=== PATIENT | female | born 1950 | race Caucasian/White ===

== ENCOUNTER → 2018-06-28 10:23 | Outpatient (CLI) | payer MEDICARE, BC, SELFPAY ==
--- NOTE | 2018-06-28 09:00 | DIABASSESS_ITS ---
DESCRIPTION/ASSESSMENT: Sherice presents for support for weight loss with diabetes. She has lost ~56 pounds, however she has regained 4 pounds and expresses disappointment and fear of regaining. Sherice is documenting her food with noted increase in candy at noon and carbohydrate for supper, SHe has been unsuccessful finding a shake substitute that is not high in carbohydrate. She has also stopped eating most vegetables. Sherice has increased her basal insulin to 60 units without effect, and has added 10 units Novolog to cover her food. She continues to only monitor before breakfast. Over the pat 10 days blood sugar range 110-249 this AM. Sherice continues to walk daily 1.5-2 miles and occasionally another .5 miles in the evening. INTERVENTION: Discussed alternatives to high carbohydrate foods that are highly processed and she voices understanding. She has determined an amount of chocolate that limits her carbohydrate intake and agrees to restrict herself to this intake daily. She will continue to look at carbohydrates in food. Discussed apps for tracking food. Supportive listening regarding stressors. ACTION PLAN: As above, Sherice will continue to document her food; limit sugar calories from chocolate; increase vegetables to at least 1 serving dialy. She will continue to walk daily.
== END ==
PROVIDERS: PCP Family Medicine; Visit Provider Dietitian, Registered
DX: E11.9 Type 2 diabetes mellitus without complications (principal); Z71.3 Dietary counseling and surveillance
CPT/HCPCS: 97802

== ENCOUNTER 2018-07-26 09:04 | Outpatient (CLI) | payer SELFPAY ==
--- NOTE | 2018-07-26 09:00 | DIABASSESS_ITS ---
DESCRIPTION/ASSESSMENT: Sherice presents for diabetes management follow-up having documented her food, blood sugars and insulin dosing for the past few weeks. Sherice eats 3 meals a day, now egg and toast or just toast for breakfast, her main meal is often mid-day with a mosaicist meal at night. She is eating sweets at least once a day; often twice a day. She is including foods like pizza some days. She has just sweets for a meal a few times a week. She takes 55 units Lantus, 10units Novolog at breakfast and 8 at supper. She monitors every morning with a high of 282, mostly mid 100s, except today 102mg/ dl. Sherice continues to walk with high intensity over a mile a day which she enjoys. Sherice continues to be plagued with financial worries and loneliness. Weight today: 198.5 INTERVENTION/PLAN: DSME is provided in the following AADE 7 areas based on patients interest and assessment of needs: Sherice continues to focus on stressors. She will attempt to use the STOP sign to stop negative thoughts; flip to positive. Discussed lack of community involvement and she will ask people at [employer] if there is anyone who likes to play cards; or go to the library. Discussed food choices and frequency of sweets. Sherice will limit sweets to one per day and eat it prior to evening. She will have 1 vegetable daily. She will look up diabetic smoothie recipe using fruit and vegetable for breakfast or supper.
== END 2018-07-26 09:24 ==
PROVIDERS: PCP Family Medicine; Visit Provider Dietitian, Registered
DX: E11.9 Type 2 diabetes mellitus without complications (principal); Z79.4 Long term (current) use of insulin; Z71.3 Dietary counseling and surveillance
CPT/HCPCS: G0108

== ENCOUNTER 2018-08-30 09:01 | Outpatient (CLI) | payer SELFPAY ==
--- NOTE | 2018-08-30 09:00 | DIABASSESS_ITS ---
DESCRIPTION/ASSESSMENT: Sherice Carey presents for follow-up to diabetes and weight management. Weight today: 201 Sherice is documenting her food, insulin dose and blood sugars. Blood sugars are increased fasting in 200s over past week.She has increased her insulin dosing in the morning to 10-18units and basal insulin to 60units. Food record indicates refined grain most mornings; noodles with protein for lunch with occasional salad, chocolate bar or other sweet daily; she skips supper and has a sweet, popcorn or crackers. She walks 1 mile most days and does look forward to that. She has discontinued [id number] because of UTI frequency. Family stressors continue. She states she has no social outlets at this time. INTERVENTION: Discussed possible reasons for increased blood sugars including medication change. Discussed food choices. Brainstormed some alternatives to refined grains including yogurt, shake with fruit. Discussed protein every time she has carbohydrate. Discussed limiting sugar sources in a day. Discussed stressors. ACTION PLAN: Test blood sugar before every meal and bedtime for 3 days; call in results Sign up for [facility] [employer] to get connected to community Ask for gym membership for ina billed 3 MNT. [phone]
== END 2018-08-30 09:21 ==
PROVIDERS: PCP Family Medicine; Visit Provider Dietitian, Registered
DX: E11.9 Type 2 diabetes mellitus without complications (principal); Z79.4 Long term (current) use of insulin; Z71.3 Dietary counseling and surveillance
CPT/HCPCS: 97802

== ENCOUNTER 2018-10-03 00:40 | Outpatient (CLI) | payer MEDICARE, BC, SELFPAY ==
--- NOTE | 2018-10-03 10:19 | DI.MAMMO_ITS ---
SYMPTOM/DIAGNOSIS: SCREENING Z112.31, PREVENTATIVE CARE Z00.00 BILATERAL SCREENING MAMMOGRAM: Mammograms were interpreted according to the usual protocol including computer analysis with CAD system, tomosynthesis and C view imaging. Comparison is made with exams from 2014 through 2017. The breasts area composed of scattered fibroglandular densities. No suspicious masses or suspicious microcalcifications are seen. There has been no significant change. IMPRESSION: Category 1-B, negative mammogram. Yearly screening mammography is recommended. [facility] ASSESSMENT OF FINDINGS: Negative. Category 1. Patient will receive a letter notifying them of these results. BI-RADS category B. There are scattered areas of fibroglandular density.
== END 2018-10-03 01:00 ==
PROVIDERS: PCP Family Medicine; Visit Provider Family Medicine
DX: Z00.00 Encounter for general adult medical examination without abnormal findings (principal); Z12.31 Encounter for screening mammogram for malignant neoplasm of breast
CPT/HCPCS: 77063; 77067

== ENCOUNTER 2018-10-04 02:06 | Outpatient (CLI) | payer MEDICARE, BC, SELFPAY ==
--- NOTE | 2018-10-04 09:00 | DIABASSESS_ITS ---
DESCRIPTION/ASSESSMENT: Sherice presents for ongoing Medical Nutrition Therapy for diabetes and obesity. Weight today: 203.8 Blood sugars fasting 189-283. She took her blood sugars before supper at 243- 368mg/dl. Sherice is eating egg with toast, or bagel or pumpkin bread most recently. She has her larger meal at noon some days but not consistently. She is more frequently eating 2 sweets a day than reported in the past; she continues to eat cereal and sugared grains for breakfast. Sherice attempted Metformin again to replace the SGLT2 inhibitor she stopped secondary to urinary tract infections. She reports unacceptable side effects and stopped the medication. Sherice reports stressors. She does continue to walk most days but she does wonder why as she is not seeing the glycemic benefit. She continues to identify social connection as a hole in her life in addition to ongoing financial stress and now holiday stress. INTERVENTION: Reviewed medication options. Discussed food choices. Discussed reconsideration of bariatric surgery if she meets the criteria. Discussed physical activity and the possibility of joining a gym class for physical activity as well as social connection. Supportive listening. ACTION PLAN: Talk with MD regarding medication Google recipes for protein shake monitor and limit sweets in a day Individual DSME/T ____ units billed TIME IN: OUT: No DM group education series being offered at this time.
== END 2018-10-04 02:26 ==
PROVIDERS: PCP Family Medicine; Visit Provider Dietitian, Registered
DX: E11.9 Type 2 diabetes mellitus without complications (principal); Z79.4 Long term (current) use of insulin; E66.8 Other obesity; Z71.3 Dietary counseling and surveillance
CPT/HCPCS: 97802

== ENCOUNTER 2018-11-15 13:41 | Outpatient (CLI) | payer MEDICARE, BC, SELFPAY ==
--- NOTE | 2018-11-14 09:00 | DIABASSESS_ITS ---
DESCRIPTION/ASSESSMENT: Sherice Carey presents for diabetes management follow up encouraged because she has lost weight gained over the holidays and since stopping her SGLT2 inhibitor. She restarted her SGLT2 inhibitor despite her endocrinology Nurse Practitioner suggesting she stop it secondary to 2 genital yeast infections. Weight today 204, similar to last weight of 203.8. Sherice describes ongoing financial stress and isolation. She did not get a gym membership for [employer] as we had discussed. She is having difficulty deciding what to do for social support. She identifies the need to eat more salads to help her nutrition. Food choices for breakfast have been oatmeal and eggs/toast. She often has popcorn and mini chocolate bar for lunch; meat, starch, vegetables for supper. She only monitors fasting and thus, we do not see the impact of food choices on blood sugar. Sherice has increased her mealtime insulin dose to 15-20 at breakfast and 20 at supper. She has also increased her Lantus dose to 60-65mg/dl. She continues to walk at least one mile daily. INTERVENTION: Discussed alternative food choices including smoothie alternatives which gets her some fruit and less grain. Reviewed all classes of diabetes medicines and she has no options left she is willing to take or that would be recommended for her at this time. She wishes to continue with SGLT2 inhibitor and will request this with her provider at their next visit. Previously we reviewed insulin injection and considered her injections sites. She was able to demonstrate appropriate technique without difficulty. Supportive listening and review of social contacts she could make. ACTION: Sherice will discuss continuing SGLT2 inhibitor with her PCP. have a salad at lunch and/or dinner most days discuss with current supports and search out social options
== END 2018-11-15 14:01 ==
PROVIDERS: PCP Family Medicine; Visit Provider Dietitian, Registered
DX: E11.9 Type 2 diabetes mellitus without complications (principal); Z79.4 Long term (current) use of insulin; Z73.1 Type A behavior pattern
CPT/HCPCS: G0108

== ENCOUNTER → 2018-12-13 09:33 | Outpatient (BNVA) | payer MEDICARE, BC, SELFPAY | PROVIDERS: PCP Family Medicine; Visit Provider Urology | DX: N39.41 Urge incontinence (principal) | CPT/HCPCS: 99213 ==

== ENCOUNTER 2018-12-20 02:00 | Outpatient (CLI) | payer MEDICARE, BC, SELFPAY ==
--- NOTE | 2018-12-20 09:02 | DIABASSESS_ITS ---
DESCRIPTION/ASSESSMENT: Sherice Carey presents for ongoing diabetes self management follow up visit. Weight today: 201 Blood sugars fasting have decreased [id number] to 119-155s. She has restarted Invokana, decreased her Lantus to 55units from 60units, and decreased mealtime insulin at breakfast and supper from 15u to 10u. Sherice asks how insulin works. Sherice reports that has stopped buying potatoes and has started fixing a salad for herself although her food record does not identify salads. Sherice describes current stressors; unable to walk due to cold, significant financial worries, and worries about her children. INTERVENTION: Reviewed action and purpose of insulin in the body; its potential effects on weight. Supportive listening re: stressors. Explored positives in her life and gratitudes she has. ACTION PLAN: She will continue to increase her vegetable intake resume walking visualize happy; identify what have control over for stressors She wishes to return in 1 month. Individual DSME/T _2___ units billed TIME IN: 0900 OUT: 1005 No DM group education series being offered at this time.
== END 2018-12-20 02:20 ==
PROVIDERS: PCP Family Medicine; Visit Provider Dietitian, Registered
DX: E11.9 Type 2 diabetes mellitus without complications (principal); Z79.4 Long term (current) use of insulin; Z71.3 Dietary counseling and surveillance
CPT/HCPCS: G0108

== ENCOUNTER 2018-12-29 07:15 | Day surgery (SDC) | payer MEDICARE, BC, SELFPAY ==
[2018-12-29 07:34] VITALS: BP 113/66; PULSE 57; RESP 16; TEMP 35.8; O2SAT 96
[2018-12-29] MEDS: Ciprofloxacin 250 MG TAB PO (07:46)
[2018-12-29] MEDS: Lactated Ringers 1,000 ML 80 ML IV (07:48)
[2018-12-29] MEDS: Lidocaine 2% Jelly 6 ML SYR (08:59)
[2018-12-29] MEDS: Water,Injection,Bacteriostatic 30 ML VIAL IJ (09:03)
--- NOTE | 2018-12-29 09:09 | W.PM.DSUDISC ---
Discharge Plan Disposition Patient Disposition: HOME Condition: Stable Discharge Details Reason For Visit: overactive bladder Attending Provider: Nahum Colon Primary Care Provider: Cintia Vázquez Home Meds and New Rx's Prescriptions: No Action esomeprazole magnesium [Nexium] 40 MG capsule,delayed release(DR/EC) 40 mg PO HS RF: 0 losartan [Cozaar] 25 MG tablet 50 mg PO DAILY RF: 0 hydrochlorothiazide 25 MG tablet 25 mg PO DAILY RF: 0 Novolog PenFill U-100 Insulin 100 UNIT/1 ML cartridge 8 - 10 unit Sub-Q DIRECTED RF: 0 Victoza 2-Lee 0.6 MG/0.1 ML pen injector 1.8 mg SQ DAILY RF: 0 Farxiga 5 MG tablet 5 mg PO DAILY RF: 0 aspirin [Aspirin Low-Strength] 81 MG tablet,chewable 81 mg PO DAILY RF: 0 rosuvastatin [Crestor] 20 MG tablet 20 mg PO DAILY RF: 0 VITAMIN D3 1,000 UNIT capsule 1,000 unit PO DAILY RF: 0 Lantus U-100 Insulin 100 unit/mL Solution 50 unit SUBCUT HS RF: 0 Discharge Instructions Additional Instructions: pt must void prior to discharge OK to restart aspirin and NSAIDS No f/u appt to be scheduled, but ask pt to call next week with a progress report Activity:: Activity as Tolerated Diet:: As Tolerated Discharge Orders Discharge Orders: Discharge Order (Routine); Ordered 12/29/18 Ordered By: Nahum Colon
[2018-12-29 10:35] VITALS: BP 108/65; PULSE 49; RESP 16; TEMP 36; O2SAT 98
--- NOTE | 2018-12-29 11:13 | ROE_ITS ---
REPORT OF OPERATIVE PROCEDURE DATE OF PROCEDURE December 29, 2018 PREOPERATIVE DIAGNOSIS Overactive bladder. POSTOPERATIVE DIAGNOSIS Overactive bladder. 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 SURGEON Nahum Colon M.D. ANESTHESIA MAC. COMPLICATIONS None. ESTIMATED BLOOD LOSS Minimal. HISTORY This is a 68-year-old woman who has a history of urinary frequency and urgency related to overactive bladder. She has received and injection of Botox into the detrusor muscle previously. Her symptoms im proved dramatically, but as expected, the effect of the Botox has worn off over the months. She prese nts now for repeat injection. PROCEDURE The patient was brought to the Operating Room on 12/29/2018. She was given Monitored Anesthesia Care a nd placed in the dorsal lithotomy position. Her genitalia was prepped and draped. A #20-Tunisian Urethrotome sheath was passed through the urethra into the bladder. The bladder was then inspected with the 30-Degree lens. We used the transurethral injection system to inject a total of 100 units of Botox into the detrusor muscle. We used a solution of 100 units of Botox and 20 ml of saline; we injected 1 ml in 20 differen t locations. We used a grid pattern of 4 horizontal rows and 5 vertical rows. We avoided the trigone and bladder neck during our injections. She tolerated this procedure well with no complications.
== END 2018-12-29 10:30 | disposition home or self-care (01) ==
PROVIDERS: PCP Family Medicine; Visit Provider Urology
PROC: (CPT 52287; principal; 2018-12-29 08:45)
DX: N32.81 Overactive bladder (principal)
CPT/HCPCS: 52287; J0585

== ENCOUNTER 2019-01-17 01:49 | Outpatient (CLI) | payer MEDICARE, BC, SELFPAY ==
--- NOTE | 2019-01-18 09:40 | W.DIABETESNO ---
Date of service: 01/18/19 Time of Service: 09:40 Diabetes Note NOTE: DESCRIPTION/ASSESSMENT: Sherice presents for monthly follow up for diabetes self management including weight management. Weight today 199 having resumed Farxiga. Documented blood sugars over the past month 124-221. She does not test blood sugars otherwise. She is taking 50units Glargine and 10u Novolog breakfast and supper. She is back on her breakfast shake which includes fruit and dairy. She eats a variety at meals. Sweets at lunch some days. Sherice describes high stress with out of down family visiting and her 's surgery as well as financial stress. She has been using a prayer mantra to help with most stressful times. She has not been walking this month due to company and the weather. INTERVENTION: Supportive listening re: stressors. Discussed flipping negative to positive and focus on what is good in a situation. She agrees conceptually. She is eating minimal carbohydrate. Discussed cutting back/substituting bread. Discussed physical activity. She will begin to walk again. PLAN: Begin walking again FLipping negative thoughts to positive Time Spent in Nutritional Counseling and Treatment: 60 minutes face to face
== END 2019-01-17 02:09 ==
PROVIDERS: PCP Family Medicine; Visit Provider Dietitian, Registered
DX: E11.9 Type 2 diabetes mellitus without complications (principal); Z79.4 Long term (current) use of insulin; Z71.3 Dietary counseling and surveillance
CPT/HCPCS: G0108

== ENCOUNTER 2019-02-14 02:03 | Outpatient (CLI) | payer MEDICARE, BC, SELFPAY ==
--- NOTE | 2019-02-14 10:00 | DIABASSESS_ITS ---
DESCRIPTION/ASSESSMENT: Sherice is here for ongoing follow up for weight loss and diabetes management. Weight today: 196. She is eating a shake for breakfast; noon meal varies from popcorn to meat, potato and vegetable; supper varies from salad and ice cream to spaghetti. She has been sick for 3 weeks with sinus and head cold which altered her eating pattern. Describes current stressors related to family and health care. Her is working to get his blood sugars down and this is helping her eat more vegetables. INTERVENTION: Supportive listening regarding family stressors; letting certain frustrations go. Problem solve around physical activity and stress management. Discussed decreasing bread consumption and alternatives. ACTION PLAN: She will begin walking. She will try open faced sandwiches when she has them. Individual MNT _3__ units billed TIME IN: 0900 OUT: 0950 No DM group education series being offered at this time.
== END 2019-02-14 02:23 ==
PROVIDERS: PCP Family Medicine; Visit Provider Dietitian, Registered
DX: E11.9 Type 2 diabetes mellitus without complications (principal); Z71.3 Dietary counseling and surveillance; Z79.4 Long term (current) use of insulin
CPT/HCPCS: 97802

== ENCOUNTER 2019-03-21 01:11 | Outpatient (CLI) | payer MEDICARE, BC, SELFPAY ==
--- NOTE | 2019-03-21 11:20 | DI.RAD_ITS ---
SYMPTOMS/DIAGNOSIS: RIGHT HIP PAIN, M25.551 PELVIS AND RIGHT HIP: The hip joint spaces are well maintained. There is mild bilateral acetabular spurring, greater on the right side. There are degenerative changes of the SI joints, right greater than left. Degenerative changes are also noted in the lower lumbar spine. IMPRESSION: Mild to moderate degenerative changes of the right hip.
== END 2019-03-21 01:31 ==
LOC: DS 01:11 → DI 11:04
PROVIDERS: PCP Family Medicine; Visit Provider Family Medicine
DX: M25.551 Pain in right hip (principal); M16.11 Unilateral primary osteoarthritis, right hip; M53.3 Sacrococcygeal disorders, not elsewhere classified
CPT/HCPCS: 73502

== ENCOUNTER 2019-04-20 02:10 | Outpatient (CLI) | payer MEDICARE, BC, SELFPAY ==
[2019-04-20 08:19] LABS: HCT 44.1 % (36.0-46.0); Mean Corpuscular Volume 88.2 fL (80-95); Mean Platelet Volume 12.3 fL (8.0-11.0); Platelet Count 178 x1000/uL (130-400); RBC Distribution Width 14.6 % (11.7-14.6)
[2019-04-20 09:06] LABS: Hemoglobin A1C 8.5 % (4.5-6.2)
[2019-04-20 09:45] LABS: ALT 62 U/L (12-78); AST 46 U/L (15-37); Albumin 3.4 g/dL (3.4-5.0); Alkaline Phosphatase 144 U/L (46-116); Anion Gap 8.3 mmol/L (3-11); BUN 14 mg/dL (7-18); Bilirubin, Total 0.6 mg/dL (0.2-1.0); CO2 30.7 mmol/L (21.0-32.0); CREATININE 0.78 mg/dL (0.55-1.02); Calcium 9.3 mg/dL (8.5-10.1); Chloride 101 mmol/L (98-107); Glucose 138 mg/dL (70-100); Potassium 3.2 mmol/L (3.5-5.1); Sodium 140 mmol/L (136-145); Total Protein 7.5 g/dL (6.4-8.2)
[2019-04-20 09:52] LABS: COMMENT (LAB VIEW ONLY) 82.01 mg/dL; Microalb ug/mg Crea 21.1 ug/mg Cr
== END 2019-04-20 02:30 ==
PROVIDERS: PCP Family Medicine; Visit Provider Family Medicine
DX: E11.65 Type 2 diabetes mellitus with hyperglycemia (principal); I10 Essential (primary) hypertension; K76.0 Fatty (change of) liver, not elsewhere classified
CPT/HCPCS: 36415; 80053; 85027; 82043; 82570; 83036

== ENCOUNTER 2019-05-30 00:48 | Outpatient (CLI) | payer MEDICARE, BC, SELFPAY ==
--- NOTE | 2019-05-30 09:00 | DIABASSESS_ITS ---
DESCRIPTION: Sherice Carey presents for diabetes self management. She does not bring her food/blood sugar log with her today. Weight today: 199.6 Sherice is following her usual food plan and is limiting her chocolate. She states she has been throwing up in the evening about 1 night a week and wonders if it is smells, heat, or something else. She stopped walking due to hip and back pain, but has started her exercise class twice a week for socialization as well as strengthening. She did experience hypoglycemia symptoms during class but did not treat it immediately. She had taken her usual 10u Novolog for breakfast. Now she is eating a second breakfast of 2 egg and toast to prevent hypoglycemia. Sherice feels she is less immobilized. ASSESSMENT/INTERVENTION: Sherice appears to be managing her stress and her food. She has followed through with exercise class and recognizes her progress. She is motivated to walk 3 days a week in addition to class. Discussed hypoglycemia. Suggested skipping her 10u at breakfast and monitoring before lunch instead of eating a second breakfast. Supportive listening regarding stress. Discussed her symptoms and impoprtance of tracking behaviours around the time she vomits. PLAN: Sherice will not take Novolog on the day she goes to exercise class walk on the days she is not at exercise class record symptoms and behaviors on day she vomits Individual DSME/T ____ units billed TIME IN: OUT: No DM group education series being offered at this time.
== END 2019-05-30 01:08 ==
PROVIDERS: PCP Family Medicine; Visit Provider Dietitian, Registered
DX: E11.9 Type 2 diabetes mellitus without complications (principal); Z79.4 Long term (current) use of insulin; Z71.3 Dietary counseling and surveillance
CPT/HCPCS: 97803

== ENCOUNTER 2019-06-27 09:04 | Outpatient (CLI) | payer MEDICARE, BC, SELFPAY ==
--- NOTE | 2019-06-27 13:00 | DIABASSESS_ITS ---
DESCRIPTION: Sherice Carey presents for her monthly diabetes self management support. Weight today: 199.4 A1c self reported 8.1 She states she has been without hydrochlorothiazide for a while now resumed. She believes that may be part of her weight gain. She brings in her food and blood sugar log. Fasting blood sugars 122-161. She takes 10u novolog at breakfast and supper and 56u basal insulin. She is eating sweets most days, sometimes 2 small chocolate bars. She has her fruit protein shake at breakfast; sandwich, salad or toast at lunch; pancake, burger and corn, pizza, or sandwich for supper. In addition, she did a long road trip and was unable to walk or attend exercise class for over a week. She is enjoying her exercise class but is disappointed she is not losing weight. She does feel stronger and notes her progress. INTERVENTION: Discussed changes to food including a trial of 2 weeks giving up bread. Discussed medication and possibility of monitoring blood sugars at another time of day to assess impact of food on blood sugars. Discussed stress. Discussed what feels good to her. PLAN She will stop all bread for 2 weeks; check blood sugars Explore what brings her Bindu. She wishes to return in 4 weeks. Individual DSME/T __1__ units billed TIME IN: 0900 OUT: 0950 No DM group education series being offered at this time.
== END 2019-06-27 09:24 ==
PROVIDERS: PCP Family Medicine; Visit Provider Dietitian, Registered
DX: E11.9 Type 2 diabetes mellitus without complications (principal); Z79.4 Long term (current) use of insulin; Z71.3 Dietary counseling and surveillance
CPT/HCPCS: G0108

== ENCOUNTER 2019-07-25 01:40 | Outpatient (CLI) | payer MEDICARE, BC, SELFPAY ==
--- NOTE | 2019-07-25 09:00 | DIABASSESS_ITS ---
DESCRIPTION:? Sherice presents for nutrition follow up for weight management and improved glycemic control.? Weight today: 198? A1c increased to 9.2 despite physical activity. Sherice had a goal of eliminating bread.? She was unable to do this entirely, but she was more conscientious of her choices around grains. She has had a couple of episodes of vomiting or near vomiting.? She is relating this to anxiety especially seen when with a new group.? In addition, she has experienced hypoglycemic symptoms during the day. INTERVENTION:? Reviewed deep breathing exercise and anxiety?awareness. Reviewed need for vegetables?at 2 cups daily; whole grain with 3 grams fiber if choosing grains. Discussed CGM and she is willing to have this placed in 2 weeks. PLAN:? Return 2 weeks for CGM placement Choose whole grain bread with 3 grams fiber Have 2 cups vegetables daily.
== END 2019-07-25 02:00 ==
PROVIDERS: PCP Family Medicine; Visit Provider Dietitian, Registered
DX: E11.9 Type 2 diabetes mellitus without complications (principal); Z79.4 Long term (current) use of insulin; Z71.3 Dietary counseling and surveillance
CPT/HCPCS: G0108

== ENCOUNTER 2019-08-07 01:08 | Outpatient (CLI) | payer MEDICARE, BC, SELFPAY ==
--- NOTE | 2019-08-07 13:00 | DIABASSESS_ITS ---
DESCRIPTION:? Sherice Carey presents for diabetes management having worn the Professional CGM.for one week.? States she liked wearing the CGM and is interested in obtaining her own. Blood sugars were above 250 based on frequency of the high alert.? She did not experience any hypoglycemic symptoms or blood sugars.She has increased her Lantus to 60 units and has been taking 20u Novolog at supper and 10-15u in AM or lunch.?? INTERVENTION:? Sherice is encouraged to take her mealtime insulin and to cut back on grains. She is encouraged to look at her sugar intake in grams, track water and protein intake as part of her exercise class. PLAN:? Will download CGM and review results with her.
--- NOTE | 2019-08-24 10:01 | DIABASSESS_ITS ---
DESCRIPTION/ASSESSMENT: Sherice Carey presents for consideration for and placement of Dexcom 4 Professional Continuous GLucose Monitor. INTERVENTION: Discussed benefits of CGM; how it works; instructed in use, precautions, tracking. She agrees to try the CGM knowing it can be removed at any time. CGM is placed without difficulty. She understands she needs to calibrate the machine every 12 hours. Set alerts at 80mg/dl and 240mg/dl. She will call with questions or concerns. ACTION PLAN: Sherice document her food and activity on her food log She will return in 2 weeks to download the CGM data. Individual DSME/T __0__ units billed 22 MINUTES FACE TO FACE No DM group education series being offered at this time.
== END 2019-08-07 01:28 ==
PROVIDERS: PCP Family Medicine; Visit Provider Dietitian, Registered
DX: E11.9 Type 2 diabetes mellitus without complications (principal); Z79.4 Long term (current) use of insulin; Z71.3 Dietary counseling and surveillance

== ENCOUNTER 2019-08-22 01:59 | Outpatient (CLI) | payer SELFPAY ==
--- NOTE | 2019-08-22 14:30 | NS.NUTBLAN_ITS ---
DESCRIPTION/ASSESSMENT: Sherice presents for follow up for nutrition management for diabetes and weight. Discussed current situation. Weight gain to 201 pounds today. BMI 34 States she has been down to 196 pounds at home. Continue to drink morning shake; toast with egg before exercise to prevent hypoglycemia symptoms during workout; mini chocolate daily and minimal vegetables; she is eating potato and or bread some evenings which is new for her. Sherice continues to exercise 4 days a week and enjoys her gym workout and the [employer] group that is more community oriented. She feels she may be too busy as she is preparing for her [facility] in [place]. She states she is discouraged she is not losing weight but she knows she is stronger and this feels rewarding to her. Sherice wore the CGM last week and will review results at her next appt in 1 month. Because of the CGM she started taking mealtime insulin at breakfast and supper most days. INTERVENTION: Discussed frequency of eating sugar containing food as well as frequency of refined grain consumption. DIscussed ways eating out affects her carbohydrate intake Discussed how knowing her blood sugar affected her every day in decisions about food and understanding the effects of physical activity. ACTION PLAN: Sherice will look for higher fiber bread choice. will look at sugar/carbohydrate on chocolate. will continue to take insulin at breakfast and supper. will attempt to monitor occasionally before supper and/or bed. She will return in 1 month for follow up. 35 minutes face to face for medical nutrition therapy out of a 55 minute visit. No group DSME offered at this time.
--- NOTE | 2019-08-22 14:44 | DIABASSESS_ITS ---
DESCRIPTION/ASSESSMENT: Sherice presents for follow up for ongoing nutrition management for diabetes and weight. Discussed current situation. Weight gain to 201 pounds today. BMI 34. States that she has been down to 196 pounds at home. Continues to drink morning shake; toast with egg before exercise to prevent hypoglycemia symptoms during workout; mini chocolate daily and minimal vegetables; she is eating potato and/or bread some evenings which is new for her. Sherice continues to exercise 4 days a week and enjoys her gym workout and the [employer] group that is more community oriented. She feels she may be too busy as she is preparing for her [employer] in [place]. She states she is discouraged that she is not losing weight but she knows that she is stronger and this feels rewarding to her. Sherice wore the CGM last week and will review results at her next appt in 1 month. Because of the CGM she started taking mealtime insulin at breakfast and supper most days. INTERVENTION: Discussed frequency of eating sugar containing food as well as frequency of refined grain consumption. Discussed ways eating out affects her carbohydrate intake. Discussed how knowing her blood sugar affected her every day in decisions about food and understanding the effects of physical activity. ACTION PLAN: Sherice will look for higher fiber bread choices. She will look at sugar/carbohydrate on chocolate. She will continue to take insulin at breakfast and supper. She will attempt to monitor occasionally before supper and/or bed. She will return in 1 month for follow-up. 35 minutes [id number] for medical nutrition therapy out of a 55 minute visit. No group DSME offered at this time. (Originally transcribed note was unable to be E-signed. This note was printed and retyped by on 10/10/19)
== END 2019-08-22 02:19 ==
PROVIDERS: PCP Family Medicine; Visit Provider Dietitian, Registered
DX: E11.9 Type 2 diabetes mellitus without complications (principal); Z71.3 Dietary counseling and surveillance
CPT/HCPCS: 97802; G0108

== ENCOUNTER 2019-09-21 08:33 | Outpatient (CLI) | payer MEDICARE, BC, SELFPAY ==
--- NOTE | 2019-09-21 12:00 | DIABASSESS_ITS ---
DESCRIPTION/ASSESSMENT: Sherice Carey presents for diabetes consult to review her CGM results. Sherice takes 65u Lantus at night and 10u Novolog at breakfast and supper. She monitors her blood sugars fasting daily. She documents her food most days. Sherice eats in a consistent pattern with 3 meals a day and usually a chocolate snack mid-day and sometimes also in the evening. She has a protein shake for breakfast with fruit; lunch varies from a sandwich to meat and starch, occasionally a salad; supper is the same. Continuous Glucose Monitor results do not show a consistent pattern of blood sugars, but it indicates trends. Midnight to 8AM is generally above 200mg/dl. Sometimes blood sugars rise at a meal, but not always, and not always related to whether insulin is taken or not. It also does not seem to related directly with physical activity (exercise classes). Some days are even all day, some days there are excursions of 150mg/dl up or down despite consistent meal patterns. INTERVENTION: DSME is provided in the following AADE 7 areas based on patients interest and assessment of needs: Discussed her current food pattern and she states she has changed her bread to Joey bread with 3 grams carbohydrate. She tried mashed cauliflower in place of mashed potato and that was not acceptable, however she was able to use it in a casserole. She is more intentional about increasing her vegetables to replace starches, although she dislikes vegetables. Explained requirements of owning CGM with Medicare. Sherice agrees to monitor her blood sugars before each meal and take insulin with each meal. Discussed dosing insulin for carbohydrate and based on blood sugar (insulin correction) and she agrees to try this. Calculated insulin:carb at 1 unit covers 5 grams carbohydrate and 1 unit corrects 20mg/dl. She is given a chart to follow. Explained that Lantus insulin is now covering some of her carbohydrate foods, and thus as her mealtime insulin dose increases, likely her basal insulin dose will decrease. She is willing to give this a try. For every 5 grams of Carbohydrate: Take: 1 unit PLUS Blood sugar Novolog 140-160 1 161-180 2 181-200 3 201-220 4 221-240 5 241-260 6 MEALTIME INSULIN DOSING for Sherice Carey 09/21/19 PLAN: Sherice will follow the insulin schedule and we will be in touch in 1 week or sooner as needed. Face to Face 60 minutes billed 2 DSME on scholarship TC to Sherice - feels her blood sugars are better and working on remembering to take it each meal. Wishes to continue with current plan. MATI Joaquin,CDE
== END 2019-09-21 08:53 ==
PROVIDERS: PCP Family Medicine; Visit Provider Dietitian, Registered
DX: E11.9 Type 2 diabetes mellitus without complications (principal); Z79.4 Long term (current) use of insulin; Z71.3 Dietary counseling and surveillance
CPT/HCPCS: G0108

== ENCOUNTER 2019-10-02 14:18 | Outpatient (CLI) | payer SELFPAY ==
--- NOTE | 2019-10-02 14:00 | DIABASSESS_ITS ---
DESCRIPTION/ASSESSMENT: Follow up diabetes visit for Sherice Carey to manage weight and blood sugar. Sherice is monitoring every morning with improved fasting blood sugars 103-174 over the past week taking 10u mealtime insulin with each meal. She continues to monitor only once a day. She recognizes she does not know how things are working throughout the day. INTERVENTION: Discussed improving mealtime insulin dosing based on carbohydrate eaten and blood sugar at pre-meal. She agrees to try this. Insulin:carbohydrate calculated at 1 unit covers 5 grams carbohydrate and 1 unit corrects her blood sugar 20mg/dl. For every 5 grams of Carbohydrate 1 unit PLUS Blood sugar Novolog 140-160 1 161-180 2 181-200 3 201-220 4 221-240 5 241-260 6 ACTION PLAN: Sherice will follow this insulin schedule and return in 1 month for follow up. She knows to call with questions in the meantime. On scholarship Individual DSME/T _2___ units billed for 60 minutes face to face No DM group education series being offered at this time.
== END 2019-10-02 14:38 ==
PROVIDERS: PCP Family Medicine; Visit Provider Dietitian, Registered
DX: E11.9 Type 2 diabetes mellitus without complications (principal); Z79.4 Long term (current) use of insulin; Z71.3 Dietary counseling and surveillance
CPT/HCPCS: G0108

== ENCOUNTER 2019-11-07 10:51 | Outpatient (CLI) | payer SELFPAY ==
--- NOTE | 2018-12-08 10:30 | DIABASSESS_ITS ---
DESCRIPTION/ASSESSMENT: Sherice presents for ongoing support for diabetes management and weight management. SHe is now taking mulitiple insulin dosings daily with 5-10 units in AM, 2-8 units at lunch; 6-10u at supper and 55u Levemir nightly. Fasting blood sugars 110-209, otherwise 134-189 with 2 over 200. This is an improvement over her previous blood sugars. SHe is not tracking her food intake. She recieved a ninja air fryer and instapot which she thinks will help increase vegetable consumption and healthier meals. Sherice continues to participate in organized exercise classes 4 days a week. Weight today 196. Sherice states she is having trouble sleeping, waking up early. Relayed some stressors but in generally Sherice has a positive attitude and appears less stressed. INTERVENTION: Supportive listening. Complimented her on her increased insulin and improved glycemic control without weight gain. Discussed tracking food again more carefully to assess need for insulin for meals and to see what meal patterns improve glycemic control. Reviewed requirements for Freestyle Tho CGM which requires monitoring blood sugars before each meal. ACTION PLAN: Sherice will consider monitoring blood sugars before each meal and tracking her food intake for carbohydrate intake. Individual DSME/T __2__ units billed TIME IN: 1030 OUT: 1130 No DM group education series being offered at this time.
== END 2019-11-07 11:11 ==
PROVIDERS: PCP Family Medicine; Visit Provider Dietitian, Registered
DX: E11.9 Type 2 diabetes mellitus without complications (principal); Z79.4 Long term (current) use of insulin; Z71.3 Dietary counseling and surveillance
CPT/HCPCS: G0108

== ENCOUNTER 2019-12-13 07:43 | Outpatient (CLI) | payer MEDICARE, BC, SELFPAY ==
--- NOTE | 2019-12-04 13:00 | NS.NUTBLAN_ITS ---
DESCRIPTION: Sherice presents for medical nutrition therapy for diabetes management and weight loss. Reports fsting blood sugars higher 170-195 over past week taking 10u mealtime insulin at breakfast and supper, occasionally at noon. Blood sugars between morning and noon are consistent. Occasional bedtime blood sugar taken: 152- 203mg/dl. Sherice has had some time off her exercise classes and looks forward to getting back on a schedule. She acknowledges it does not help with weight loss or glycemic control but she is stronger and feels better and more connected to her community. INTERVENTION: Review of food prior to exercise. Discussed returning to healthier cooking and adding back salad daily; going back to protein shake. Discussed increasing supper insulin dosing to 12 to address bedtime hyperglycemia. Briefly discussed stress management and gratitude. Sherice wishes to return in 1 month. PLAN: Salad daily; protein shake instead of bread Take 12 units insulin with supper in hopes of decreasing fasting blood sugar.
== END 2019-12-13 08:03 ==
PROVIDERS: PCP Family Medicine; Visit Provider Dietitian, Registered
DX: E11.9 Type 2 diabetes mellitus without complications (principal); Z79.4 Long term (current) use of insulin; Z71.3 Dietary counseling and surveillance
CPT/HCPCS: 97803

== ENCOUNTER 2020-01-03 10:05 | Outpatient (CLI) | payer MEDICARE, BC, SELFPAY ==
--- NOTE | 2020-01-03 09:00 | DIABASSESS_ITS ---
DESCRIPTION: Sherice Carey presents for monthly diabetes support for weight management and improving her blood sugars. She is now monitoring her blood sugars at every meal and taking 8-12 units Novolog with each meal. In addition, she has increased Lantus to 55 units nightly. She is seeking obtaining Freestyle Tho. She sees she needs to go back to having salads for lunch. She is not eating potatoes. Fasting blood sugars 142-187; [id number]; pre-supper 141-200mg/dl. Continues with [employer] and other exercise programs; she is getting out a bit more socially. Finances continue to be one of her biggest stressors. States she is having difficulty sleeping. Discussed meditation tools and progressive relaxation for sleep. PLAN: Sherice will continue her current regimen; add salads to lunch consider quieting her mind; progressive relaxation At her next visit we will look at the Freestyle Tho
== END 2020-01-03 10:25 ==
PROVIDERS: PCP Family Medicine; Visit Provider Dietitian, Registered
DX: E11.9 Type 2 diabetes mellitus without complications (principal); Z79.4 Long term (current) use of insulin; Z71.3 Dietary counseling and surveillance
CPT/HCPCS: G0108

== ENCOUNTER 2020-03-27 12:26 | Outpatient (REF) | payer MEDICARE, BC, SELFPAY ==
[2020-03-27 15:10] LABS: HCT 44.1 % (36.0-46.0); HGB 14.9 g/dL (12.0-15.5); Mean Corp. HGB Concentration 33.8 g/dL (32.0-36.0); Mean Corpuscular Hemoglobin 30.3 pg (27.0-33.0); Mean Corpuscular Volume 89.6 fL (80-95); Mean Platelet Volume 12.6 fL (8.0-11.0); Platelet Count 181 x1000/uL (130-400); RBC 4.92 m/cumm (4.00-5.20); RBC Distribution Width 15.1 % (11.7-14.6); White Blood Cell Count 5.15 k/cumm (4.4-10.8)
[2020-03-27 15:33] LABS: ALT 61 U/L (14-59); AST 50 U/L (15-37); Albumin 3.7 g/dL (3.4-5.0); Alkaline Phosphatase 130 U/L (46-116); Anion Gap 7.3 mmol/L (3-11); BUN 14 mg/dL (7-18); Bilirubin, Total 0.9 mg/dL (0.2-1.0); CO2 31.7 mmol/L (21.0-32.0); CREATININE 0.88 mg/dL (0.55-1.02); Calcium 9.8 mg/dL (8.5-10.1); Chloride 102 mmol/L (98-107); Glucose 142 mg/dL (74-106); Potassium 3.2 mmol/L (3.5-5.1); Sodium 141 mmol/L (136-145); Total Protein 7.7 g/dL (6.4-8.2)
== END 2020-03-27 12:46 ==
LOC: NCHCN 12:26
PROVIDERS: PCP Family Medicine; Visit Provider Family Medicine
DX: I10 Essential (primary) hypertension (principal); E11.65 Type 2 diabetes mellitus with hyperglycemia; K76.0 Fatty (change of) liver, not elsewhere classified
CPT/HCPCS: 80053; 85027

== ENCOUNTER 2020-06-28 10:05 | Outpatient (REF) | payer MEDICARE, BC, SELFPAY ==
[2020-06-28 21:25] LABS: COMMENT (LAB VIEW ONLY) 77.23 mg/dL; Microalb ug/mg Crea 25.2 ug/mg Cr
== END 2020-06-28 10:25 ==
LOC: NCHCN 10:05
PROVIDERS: PCP Family Medicine; Visit Provider Family Medicine
DX: E11.65 Type 2 diabetes mellitus with hyperglycemia (principal)
CPT/HCPCS: 82043; 82570

== ENCOUNTER 2020-08-13 01:17 | Outpatient (CLI) | payer MEDICARE, BC, SELFPAY ==
[2020-08-13 09:39] LABS: ALT 91 U/L (14-59); AST 71 U/L (15-37); Albumin 3.4 g/dL (3.4-5.0); Alkaline Phosphatase 133 U/L (46-116); Anion Gap 6.2 mmol/L (3-11); BUN 17 mg/dL (7-18); Bilirubin, Total 0.9 mg/dL (0.2-1.0); CO2 32.8 mmol/L (21.0-32.0); CREATININE 0.81 mg/dL (0.55-1.02); Calcium 8.9 mg/dL (8.5-10.1); Chloride 103 mmol/L (98-107); Cholesterol 188 mg/dL (<200); Glucose 207 mg/dL (74-106); HDL Cholesterol 26 mg/dL (40-60); Potassium 3.1 mmol/L (3.5-5.1); Sodium 142 mmol/L (136-145); TSH 4.49 uIU/mL (0.36-3.74); Total Protein 7.1 g/dL (6.4-8.2); Triglyceride 468 mg/dL (<150)
[2020-08-13 10:04] LABS: LDL CHOLESTEROL 69 mg/dL (<100)
[2020-08-14 16:33] LABS: Fructosamine 309 mcmol/L (200 - 285)
[2020-08-15 15:52] LABS: C-Peptide 3.2 ng/mL (1.1 - 4.4)
== END 2020-08-13 01:37 ==
PROVIDERS: PCP Family Medicine; Visit Provider Internal Medicine Endocrinology, Diabetes & Metabolism
DX: E11.65 Type 2 diabetes mellitus with hyperglycemia (principal); E78.00 Pure hypercholesterolemia, unspecified; Z68.34 Body mass index [BMI] 34.0-34.9, adult
CPT/HCPCS: 36415; 80053; 80061; 83721; 82985; 84443; 84681

== ENCOUNTER 2020-11-13 03:06 | Outpatient (CLI) | payer MEDICARE, BC, SELFPAY ==
--- NOTE | 2020-11-13 | DI.MAMMO_ITS ---
EXAM: MG MAMMO SCREENING CLINICAL HISTORY: SCREENING, [facility],Z00.00. TECHNIQUE: Bilateral full field digital CC and MLO mammographic images were obtained with 3D tomosyn thesis and utilizing computer aided detection (CAD). COMPARISON: Prior mammograms dating back to 2010, the most recent being September 2018. FINDINGS: There are multiple small nodular densities in both breasts which appear relatively stable with the ex ception of is increasing retroareolar region nodules in right breast. Ultrasound recommended. There are no spiculated masses nor malignant appearing microcalcification groups. There is no signif icant architectural distortion nor skin thickening-retraction. IMPRESSION: Increasing size nodular densities in the retroareolar region of the right breast. Breast ultrasound recommended. BI-RADS Category 0 - Assessment Incomplete: Need additional imaging evaluation Breast Density - Category B - Scattered areas of fibroglandular density Breast density Category C or D implies that the patient has dense breast tissue. Dense breast tissue can make it harder to find cancer on a mammogram. Dense breast tissue is also associated with an incr eased risk of breast cancer. This information about the result of the mammogram report was provided to the patient to raise their awareness. Use this report when you speak with the patient about their risks for breast cancer, which includes their family history. At that time, you may recommend additional screening tests (Ultrasoun d or MRI) as these tests may add significant information. A negative radiographic report should not delay biopsy if a dominant or clinically suspicious mass is present. Up to ten percent of cancers are not identified on mammography. A negative report may reinforce clinical impression. Adenosis and dense breasts may obscure an underlying neoplasm. False positive reports average 6 to 10%. Patient will receive a letter notifying them of these results.
== END 2020-11-13 03:26 ==
PROVIDERS: PCP Family Medicine; Visit Provider Family Medicine
DX: Z12.31 Encounter for screening mammogram for malignant neoplasm of breast (principal); R92.8 Other abnormal and inconclusive findings on diagnostic imaging of breast; Z00.00 Encounter for general adult medical examination without abnormal findings
CPT/HCPCS: 77063; 77067

== ENCOUNTER 2020-11-18 01:13 | Outpatient (CLI) | payer MEDICARE, BC, SELFPAY ==
--- NOTE | 2020-11-18 | DI.US_ITS ---
EXAM: US BREAST RT COMPLETE CLINICAL HISTORY: F/U MAMMO, INCREASING SIZE NODULAR DENSITIES RETROAREOLAR RT BREAST. TECHNIQUE: Complete ultrasound of the right breast was performed incluing all 4 quadrants, the retro areolar region, and the ipsilateral axilla. COMPARISON: Prior mammograms were reviewed. With recent mammogram being 11/13/2020 FINDINGS: Multiple microcysts and conglomeration microcyst correspond to the nodular density seen on the mammog jack. Most importantly, there no solid lesions seen in the right breast. IMPRESSION: Microcysts. No solid lesions. Appropriate follow-up is repeat right breast MAMMOGRAM in 6, with earlier imaging if a self detected breast change is noted. BI-RADS Category 3 - 3 month - Probably Benign Finding: Recommend follow-up mammography in 3 months Breast Density - Category B - Scattered areas of fibroglandular density Breast density Category C or D implies that the patient has dense breast tissue. Dense breast tissue can make it harder to find cancer on a mammogram. Dense breast tissue is also associated with an incr eased risk of breast cancer. This information about the result of the mammogram report was provided to the patient to raise their awareness. Use this report when you speak with the patient about their risks for breast cancer, which includes their family history. At that time, you may recommend additional screening tests (Ultrasoun d or MRI) as these tests may add significant information. A negative radiographic report should not delay biopsy if a dominant or clinically suspicious mass is present. Up to ten percent of cancers are not identified on mammography. A negative report may reinforce clinical impression. Adenosis and dense breasts may obscure an underlying neoplasm. False positive reports average 6 to 10%. Patient will receive a letter notifying them of these results.
== END 2020-11-18 01:33 ==
PROVIDERS: PCP Family Medicine; Visit Provider Family Medicine
DX: R92.8 Other abnormal and inconclusive findings on diagnostic imaging of breast (principal)
CPT/HCPCS: 76642

== ENCOUNTER 2020-12-03 03:54 | Outpatient (CLI) | payer MEDICARE, BC, SELFPAY ==
[2020-12-03 12:00] LABS: ALT 77 U/L (14-59); AST 72 U/L (15-37); Albumin 3.5 g/dL (3.4-5.0); Alkaline Phosphatase 145 U/L (46-116); Anion Gap 6.9 mmol/L (3-11); BUN 18 mg/dL (7-18); Bilirubin, Total 0.9 mg/dL (0.2-1.0); CO2 29.1 mmol/L (21.0-32.0); CREATININE 0.81 mg/dL (0.55-1.02); Calcium 9.5 mg/dL (8.5-10.1); Chloride 102 mmol/L (98-107); FREE T4 0.85 ng/dL (0.76-1.46); Glucose 183 mg/dL (74-106); Potassium 3.1 mmol/L (3.5-5.1); Sodium 138 mmol/L (136-145); TSH 2.13 uIU/mL (0.36-3.74); Total Protein 7.3 g/dL (6.4-8.2)
[2020-12-03 12:08] LABS: Hemoglobin A1C 8.2 % (<5.7)
[2020-12-03 17:20] LABS: Thyroperoxidase Antibody 28 U/mL (<=60)
[2020-12-04 16:49] LABS: Fructosamine 284 mcmol/L (200 - 285)
== END 2020-12-03 04:14 ==
PROVIDERS: PCP Family Medicine; Visit Provider Internal Medicine Endocrinology, Diabetes & Metabolism
DX: E11.65 Type 2 diabetes mellitus with hyperglycemia (principal); E03.9 Hypothyroidism, unspecified; Z68.34 Body mass index [BMI] 34.0-34.9, adult
CPT/HCPCS: 36415; 80053; 82985; 83036; 84439; 84443; 86376

== ENCOUNTER 2021-01-31 04:21 | Outpatient (CLI) | payer MEDICARE, BC, SELFPAY ==
--- NOTE | 2021-01-31 08:30 | DI.RAD_ITS ---
EXAM: XR ABDOMEN FLAT PLATE CLINICAL HISTORY: ABD DISCOMFORT,R10.9,ASSESS AMOUNT OF STOOL TECHNIQUE: COMPARISON: No exams were available for comparison FINDINGS: Two views were obtained. Visualized lung bases appear clear. No gross organomegaly. Vascular clips noted in right upper quadrant consistent with prior cholecystectomy. No gross small bowel or colonic dilatation seen. There is a moderate amount of fecal material in the colon, with most prominent fecal material lying in ascending colon. No specific evidence of constip ation or obstipation. IMPRESSION: Negative examination of the abdomen. RADIATION DOSE DELIVERED: Total DLP
== END 2021-01-31 04:41 ==
PROVIDERS: PCP Family Medicine; Visit Provider Family Medicine
DX: R10.9 Unspecified abdominal pain (principal)
CPT/HCPCS: 74018

== ENCOUNTER 2021-04-03 02:42 | Outpatient (CLI) | payer MEDICARE, BC, SELFPAY ==
[2021-04-03 08:32] LABS: ALT 73 U/L (14-59); AST 62 U/L (15-37); Albumin 3.3 g/dL (3.4-5.0); Alkaline Phosphatase 125 U/L (46-116); Anion Gap 8.2 mmol/L (3-11); BUN 13 mg/dL (7-18); Bilirubin, Total 0.8 mg/dL (0.2-1.0); CO2 28.8 mmol/L (21.0-32.0); CREATININE 0.8 mg/dL (0.55-1.02); Calcium 8.6 mg/dL (8.5-10.1); Chloride 106 mmol/L (98-107); Cholesterol 152 mg/dL (<200); Glucose 169 mg/dL (74-106); HDL Cholesterol 26 mg/dL (40-60); Potassium 3.3 mmol/L (3.5-5.1); Sodium 143 mmol/L (136-145); TSH 3.23 uIU/mL (0.36-3.74); Total Protein 6.9 g/dL (6.4-8.2); Triglyceride 424 mg/dL (<150)
[2021-04-03 08:39] LABS: Hemoglobin A1C 7.5 % (<5.7)
[2021-04-03 09:31] LABS: LDL CHOLESTEROL 59 mg/dL (<100)
[2021-04-04 13:05] LABS: Fructosamine 246 mcmol/L (200 - 285)
== END 2021-04-03 02:43 | disposition home or self-care (01) ==
PROVIDERS: PCP Family Medicine; Visit Provider Internal Medicine Endocrinology, Diabetes & Metabolism
DX: E11.65 Type 2 diabetes mellitus with hyperglycemia (principal)
CPT/HCPCS: 36415; 80053; 80061; 83721; 82985; 83036; 84443

== ENCOUNTER 2021-04-11 09:38 | Outpatient (REF) | payer MEDICARE, BC, SELFPAY ==
[2021-04-11 18:51] LABS: HCT 43.3 % (36.0-46.0); HGB 14.7 g/dL (11.2-15.7); Iron 70 ug/dL (50-170); MCH 30.6 pg (27.0-33.0); MCHC 33.9 % (32.0-36.0); MPV 13.5 fL (8.0-11.0); RBC 4.81 10^6/uL (3.93-5.22); RDW 13.3 % (11.7-14.6); Total Iron Binding Capacity 261 ug/dL (250-450); Transferrin Sat 27 % (15-50); WBC 5.87 10^3/uL (4.4-10.8)
[2021-04-11 19:12] LABS: ALT 76 U/L (14-59); AST 70 U/L (15-37); Albumin 3.7 g/dL (3.4-5.0); Alkaline Phosphatase 196 U/L (46-116); Bilirubin, Total 0.9 mg/dL (0.2-1.0); Ferritin 789 ng/mL (8-252); Total Protein 7.5 g/dL (6.4-8.2)
[2021-04-11 19:21] LABS: Platelet Count 153 10^3/uL (130-400)
[2021-04-11 19:30] LABS: Bilirubin, Direct 0.2 mg/dL (0.0-0.2)
[2021-04-11 19:32] LABS: Hemoglobin A1C 7.8 % (<5.7)
[2021-04-14 10:22] LABS: Hepatitis B Surface Ab Positive (See Note)
[2021-04-14 10:36] LABS: Hepatitis B Surface Ag Negative (Negative)
[2021-04-14 11:21] LABS: Hep B Core Antibody Negative (Negative)
== END 2021-04-11 09:39 | disposition home or self-care (01) ==
LOC: NCHCN 09:38
PROVIDERS: PCP Family Medicine; Visit Provider Family Medicine
DX: R79.89 Other specified abnormal findings of blood chemistry (principal); E11.65 Type 2 diabetes mellitus with hyperglycemia
CPT/HCPCS: 80076; 85027; 86704; 86706; 87340; 82728; 83036; 83540; 83550

== ENCOUNTER → 2021-04-15 14:57 | Outpatient (BNVA) | payer MEDICARE, BC, SELFPAY | PROVIDERS: PCP Family Medicine; Referring Provider Family Medicine; Visit Provider Urology | DX: N39.41 Urge incontinence (principal); N32.81 Overactive bladder | CPT/HCPCS: 99213 ==

== ENCOUNTER 2021-05-02 02:35 | Outpatient (CLI) | payer MEDICARE, BC, SELFPAY ==
[2021-05-02 11:14] LABS: Source Nasal/Nares
[2021-05-02 15:14] LABS: COVID-19 PCR Negative (Negative)
== END 2021-05-02 02:36 | disposition home or self-care (01) ==
LOC: LBO 02:35
PROVIDERS: PCP Family Medicine; Visit Provider Urology
DX: Z20.822 Contact with and (suspected) exposure to COVID-19 (principal); Z01.818 Encounter for other preprocedural examination
CPT/HCPCS: 87635

== ENCOUNTER 2021-05-05 06:09 | Day surgery (SDC) | payer MEDICARE, BC, SELFPAY ==
[2021-05-05 06:20] VITALS: BP 134/50; PULSE 65; RESP 18; TEMP 36.6; O2SAT 93
--- NOTE | 2021-05-05 06:25 | W.ANESPRE ---
General Info Date of Service Date Performed: 05/05/21 Height: 5 ft 4 in Weight: 94.8 kg Body Mass Index (BMI): 35.9 Surgical Procedure: Operation Date: 05/05/21 07:40 Proposed Procedures Side Surgeon p Cystoscopy/Injection BOTOX Nahum Colon MD Meds Allergies and Home Medications Allergies Allergy/AdvReac Type Severity Reaction Status Date / Time sulfamethoxazole Allergy Intermediate Hives Unverified 05/02/21 08:45 [From Bactrim] trimethoprim [From Bactrim] Allergy Intermediate Hives Unverified 05/02/21 08:45 metformin AdvReac Intermediate Diarrhea Unverified 05/02/21 08:45 amoxicillin AdvReac Diarrhea Unverified 05/02/21 08:45 lisinopril AdvReac cough Unverified 05/02/21 08:45 Home Medication Medication Instructions Recorded Victoza 2-Lee 1.8 mg SQ DAILY ml 04/22/16 Vitamin D3 1,000 unit PO DAILY 04/22/16 aspirin [Aspirin Low-Strength] 81 mg PO DAILY tab-cap 04/22/16 esomeprazole magnesium [Nexium] 40 mg PO BID tab-cap 04/22/16 losartan [Cozaar] 50 mg PO DAILY tab-cap 04/22/16 rosuvastatin [Crestor] 20 mg PO DAILY tab-cap 04/22/16 insulin glargine [Lantus U-100 50 unit SUBCUT HS 12/27/18 Insulin] empagliflozin 25 mg tablet 25 mg PO DAILY 04/15/21 insulin lispro 100 unit/mL 5 - 10 unit SUBCUT DIRECTED ml 04/15/21 subcutaneous half-unit pen spironolactone 25 mg PO DAILY 05/02/21 Current Visit Medications: Current Medications Generic Name Dose Route Start Last Admin Trade Name Freq PRN Reason Stop Dose Admin Ciprofloxacin HCl 250 mg 05/05/21 06:00 Ciprofloxacin 250 Mg Tab PO 05/05/21 16:00 PREOP DANICA Ringer's Solution 1,000 mls @ 80 mls/hr 05/05/21 06:00 IV 06/01/21 23:59 INFUSION COUNTS INCLUDE 234 BEDS AT THE [facility] IV Miscellaneous Supplies 1 each 05/05/21 06:00 Iv Access IV 06/01/21 23:59 DIRECTED COUNTS INCLUDE 234 BEDS AT THE [facility] OnabotulinumtoxinA 100 units 05/05/21 06:00 Botulinum Toxin Type A 100 Units Vial IJ 05/05/21 16:00 COLLECTION SPECIALIST DANICA Sodium Chloride 0 ml 05/05/21 06:00 Normal Saline Flush 10 Ml Syr IV 06/01/21 23:59 PRN PRN Sodium Chloride 0 ml 05/05/21 06:00 Normal Saline 10 Ml Vial IJ 06/01/21 23:59 DIRECTED PRN Sterile Water 0 ml 05/05/21 06:00 Water,Injection,Sterile 10 Ml Vial IJ 06/01/21 23:59 DIRECTED PRN PFSH Active Problems Active Problems: Problem Status Onset Code Urgency incontinence N39.41 Overactive bladder N32.81 Urgency incontinence 05/26/16 N39.41 Medical History Medical History Diabetes mellitus High cholesterol History of esophageal stricture Hypertension Surgical History Surgical History Cholecystectomy Colonoscopy - MAC (02/05/17) History of toe surgery Tubal Ligation, Tobacco Smoking/Tobacco Use Status: Never Alcohol Alcohol Intake: never Substance Use Substance use: Never Substance use type: does not use Vital Signs and Lab Results Lab Results Blood Type / Crossmatch: No Data to Display Complete Blood Count: White Blood Count 5.87 10^3/uL (4.4-10.8) 04/11/21 08:50 04/11/21 Red Blood Count 4.81 10^6/uL (3.93-5.22) 04/11/21 08:50 04/11/21 Hemoglobin 14.7 g/dL (11.2-15.7) 04/11/21 08:50 04/11/21 Hematocrit 43.3 % (36.0-46.0) 04/11/21 08:50 04/11/21 Platelet Count 153 10^3/uL (130-400) 04/11/21 08:50 04/11/21 Complete Metabolic Panel: Albumin 3.7 g/dL (3.4-5.0) 04/11/21 08:50 04/11/21 Hemoglobin A1c 7.8 % (<5.7) H 04/11/21 08:50 04/11/21 Liver Function Panel: Alanine Aminotransferase (ALT/SGPT) 76 U/L (14-59) H 04/11/21 08:50 04/11/21 Aspartate Amino Transf (AST/SGOT) 70 U/L (15-37) H 04/11/21 08:50 04/11/21 Coagulation Panel: No Data to Display Cardiac Panel: No Data to Display Arterial Blood Gas: No Data to Display Venous Blood Gas: No Data to Display Pancreas Panel: No Data to Display Thyroid Panel: No Data to Display Infectious Disease: Coronavirus (COVID-19)(PCR) Negative (Negative) 05/02/21 11:06 05/02/21 Coronavirus 2019 Source Nasal/Nares 05/02/21 11:06 05/02/21 Hepatitis B Surface Antigen Negative (Negative) 04/11/21 08:50 04/11/21 Blood Cultures: No Data to Display Toxicology Panel: No Data to Display Imaging and Studies Imaging and Studies Stress Test Summary: 04/22/16: Ventricular Function (Wall Motion): The calculated left ventricular ejection fraction after stress: 56%. LV global systolic function is normal. No left ventricular regional motion abnormality. Echocardiogram Summary: 03/28/14: SUMMARY: Normal biventricular size and systolic function. No significant valvular pathology. Pulmonary artery pressures within normal limits. Mild left atrial enlargement. Of note, LVEF 75% on 12/20/06 study. Technically limited study then. Anesthesia Assessment and Plan Anesthesia History Personal History: No History of Anesthesia Complications Family History: No Family History of Anesthesia Complications Exercise Tolerance Exercise Tolerance: Metabolic Equivalents>4 Pertinent Negatives Pertinent Negatives: No Symptoms of GERD (well controlled), No Major Cardiovascular Symptoms or Complaints (HTN, HLD), No Major Pulmonary Symptoms or Complaints (snores ), No History of CVA/TIA and Other (obesity, fatty liver, IDDM) Cardiac & Pulmonary Exam Cardiac Exam: Normal S1/S2 Heart Sounds Pulmonary Exam: Clear Bilateral Breath Sounds Airway Exam Known Difficult Airway: No Mallampati Class: 4 Mouth Opening: Narrow (< 3cm) Thyromental Distance: Less than 3 cm Neck Range of Motion: Full ROM Neck Circumference: Normal Teeth Condition: Normal Dentition ASA Classification ASA Score: ASA 3 Emergency Case?: No NPO Status NPO Status: NPO Clears >2 hours, Solids >8 hours Anesthesia Plan Resuscitation Status: Full Code Anesthesia Technique: General Anesthesia Airway Planned: Natural Airway Monitors Used: Standard Monitors
[2021-05-05] MEDS: Lactated Ringers 1,000 ML 80 ML IV (06:51)
[2021-05-05] MEDS: Ciprofloxacin 250 MG TAB PO (06:51)
--- NOTE | 2021-05-05 06:53 | W.PM.HP.N ---
Date of service: 05/05/21 Time of Service: 06:57 Assessment and Plan Assessment and plan (1) Urgency incontinence: Status: Acute Assessment and plan: For cystoscopy with transurethral injection of Botox into detrusor muscle History of Present Illness History of Present Illness Chief Complaint: Urgency incontinence Narrative: This is a 70-year-old woman who has a history of urgency incontinence. She failed medical management but has had improvement with intravesical injection of Botox. She has not had an injection in over a year because of the Covid pandemic. During that year, her voiding symptoms have worsened. She has urgency, frequency and incontinence. She has no dysuria or episodes of retention. She had no adverse reactions to the Botox previously. She does have a chronic yeast infection which is felt to be related to her diabetic medications. She has no recent urinary tract infections. Review of Systems Narrative: Quite nervous. No fevers or chills No vision change or dysphasia dysfunctionHx diabetes. No thyroid No shortness of breath, cough or hemoptysis No chest pain or palpitations Hx GERD and esophageal dilation. No hepatitis, ulcers, jaundice No seizures, strokes or peripheral neuropathy No bleeding disorders or anemia No gout PFSH Medical History Diabetes mellitus High cholesterol History of esophageal stricture Hypertension Surgical History Cholecystectomy Colonoscopy - [facility] (02/05/17) History of toe surgery Tubal Ligation, Family History Maternal Aunt Colon cancer Social History Smoking/Tobacco Use Status: Never Smoking risk assessment performed?: Yes Alcohol Intake: never Drug use: Never Substance use type: does not use Additional Social history: is present. Unable to question privately. Meds Allergies and Home Medications Allergies Allergy/AdvReac Type Severity Reaction Status Date / Time sulfamethoxazole Allergy Intermediate Hives Unverified 05/02/21 08:45 [From Bactrim] trimethoprim [From Bactrim] Allergy Intermediate Hives Unverified 05/02/21 08:45 metformin AdvReac Intermediate Diarrhea Unverified 05/02/21 08:45 amoxicillin AdvReac Diarrhea Unverified 05/02/21 08:45 lisinopril AdvReac cough Unverified 05/02/21 08:45 Home Medications Medication Instructions Recorded Confirmed Type Victoza 2-Lee 1.8 mg SQ DAILY ml 04/22/16 05/05/21 History Vitamin D3 1,000 unit PO DAILY 04/22/16 05/05/21 History aspirin [Aspirin Low-Strength] 81 mg PO DAILY tab-cap 04/22/16 05/05/21 History esomeprazole magnesium [Nexium] 40 mg PO BID tab-cap 04/22/16 05/05/21 History losartan [Cozaar] 50 mg PO DAILY tab-cap 04/22/16 05/05/21 History rosuvastatin [Crestor] 20 mg PO DAILY tab-cap 04/22/16 05/05/21 History insulin glargine [Lantus U-100 50 unit SUBCUT HS 12/27/18 05/05/21 History Insulin] empagliflozin 25 mg tablet 25 mg PO DAILY 04/15/21 05/05/21 History insulin lispro 100 unit/mL 5 - 10 unit SUBCUT DIRECTED ml 04/15/21 05/05/21 History subcutaneous half-unit pen spironolactone 25 mg PO DAILY 05/02/21 05/05/21 History Exam Const General: cooperative and no acute distress Neck Neck: supple Resp Effort & Inspection: normal respiratory effort Auscultation: clear to auscultation bilaterally Cardio Rate: regular rate Rhythm: regular rhythm GI Palpation: soft and no masses Neuro General: patient alert, patient awake and patient oriented x3 Results Last Vital Signs Temp 36.6 C 05/05/21 06:20 Pulse 65 05/05/21 06:20 Resp 18 05/05/21 06:20 BP 134/50 L 05/05/21 06:20 Pulse Ox 93 05/05/21 06:20
[2021-05-05 06:56] VITALS: BMI 35.9
[2021-05-05] MEDS: Lidocaine 2% Jelly 6 ML SYR (07:47)
[2021-05-05] MEDS: Normal Saline 20 ML VIAL (07:50)
--- NOTE | 2021-05-05 07:54 | PDOC.DSDIS_ITS ---
Discharge Plan Disposition Patient Disposition: HOME Condition: Stable Discharge Details Reason For Visit: urgency incontinence Attending Provider: Nahum Colon Primary Care Provider: Cintia Vázquez Home Meds and New Rx's Prescriptions: No Action Jardiance 25 mg tablet 25 mg PO DAILY RF: 0 insulin lispro [Humalog Garrett KwikPen U-100] 100 unit/mL insulin pen, half- unit 5 - 10 unit subcut DIRECTED RF: 0 esomeprazole magnesium [Nexium] 40 MG capsule,delayed release(DR/EC) 40 mg PO BID RF: 0 losartan [Cozaar] 25 MG tablet 50 mg PO DAILY RF: 0 Victoza 2-Lee 0.6 MG/0.1 ML pen injector 1.8 mg SQ DAILY RF: 0 aspirin [Aspirin Low-Strength] 81 MG tablet,chewable 81 mg PO DAILY RF: 0 rosuvastatin [Crestor] 20 MG tablet 20 mg PO DAILY RF: 0 VITAMIN D3 1,000 UNIT capsule 1,000 unit PO DAILY RF: 0 Lantus U-100 Insulin 100 unit/mL Solution 50 unit SUBCUT HS RF: 0 spironolactone 25 mg Tablet 25 mg PO DAILY RF: 0 Discharge Instructions Additional Instructions: no followup appointment but ask pt to call in 1 week with a progress report Activity:: Activity as Tolerated Shower/Bathe:: 24 hours Diet:: As Tolerated Discharge Orders Discharge Orders: Discharge Order (Routine); Ordered 05/05/21 Ordered By: Nahum Colon Discharge Data Discharge Comment: pt should void prior to discharge DS: Diagnosis Discharge Diagnosis (1) Urgency incontinence: Status: Acute
--- NOTE | 2021-05-05 07:57 | W.PM.OP ---
Date of service: 05/05/21 Time of Service: 07:58 Operative Note Operative Note DATE OF PROCEDURE: 05/05/21 PRE-OP DIAGNOSIS: Urgency Incontinence POST-OP DIAGNOSIS: same PROCEDURE: Cystoscopy, transurethral injection Botox into detrusor SURGEON: Nahum Colon ANESTHESIA TYPE: Local By Surgeon and General:No Airway Refer to Anesthesia Record ESTIMATED BLOOD LOSS: 0 PATHOLOGY: none sent COMPLICATIONS: None Patient was transported to: same day Patient's condition: stable Indications: This is a 70-year-old woman who has a history of urgency incontinence. She had failed behavioral modification, pelvic floor physical therapy and anticholinergic therapy. She had significant improvement in her symptoms with the use of Botox injections into the detrusor muscle. She has not had an injection in over 2 years. She presents for repeat Botox injection into the bladder Findings: More bladder anatomy Procedure Description: She was given preoperative oral antibiotics. She is brought to the procedure room on 05/05/2021. She was given general anesthesia without intubation and placed in the dorsal lithotomy position. Her genitalia was prepped and draped. 2% Xylocaine jelly was instilled into the urethra to act as a local anesthetic. A 20 [place] urethrotome sheath was passed through the urethra into the bladder. The bladder was inspected with a 30 degree lens. Both ureteral orifices appeared normal. No papillary or nodular lesions were seen. We then used a transurethral injection system to inject a total of 100 units of Botox into the detrusor muscle. We mixed the Botox in 10 mL of saline. We injected 0.5 mL of solution into 20 different locations on the posterior bladder wall. We follow a grid of 5 injection sites horizontally and 4 rows vertically. We avoided the trigone and ureteral orifices. She tolerated this procedure well with no complications. She was taken back to day surgery unit in stable condition.
--- NOTE | 2021-05-05 08:02 | W.ANESPOSTOP ---
Postoperative Evaluation Date, Time and Location Date Performed: 05/05/21 Time Performed: 08:02 Patient Location: Day Surgery Unit Vital Signs Most Recent Imported Vital Signs: Most Recent Vital Signs Temp Pulse Resp BP Pulse Ox 36.6 C 65 18 134/50 L 93 05/05/21 06:20 05/05/21 06:20 05/05/21 06:20 05/05/21 06:20 05/05/21 06:20 Most Recent Manually Entered Vital Signs: Adult Blood Pressure: 98/39 Heart Rate: 59 Respirations: 18 Oxygen Saturation (%): 94 Temperature (C): 36.3 C Pain Score (0-10 Scale): 0 Assessment Mental Status: Awake (Alert & Oriented to Patient Baseline) Airway and Respiratory Function: Patent airway with normal (patient baseline) respiratory exam Cardiovascular Function: Hemodynamically Stable Hydration Status: Adequately Hydrated Nausea & Vomiting: No Nausea or Vomiting Pain: Pt. Denies Any Pain Peripheral Nerve Block: Patient did not receive a nerve block
[2021-05-05 08:03] VITALS: BP 98/39; PULSE 61; RESP 16; TEMP 36.3; O2SAT 92
[2021-05-05 08:04] VITALS: BP 98/39; PULSE 59; RESP 18; TEMPC 36.3; O2SAT 94
[2021-05-05] MEDS: Phenazopyridine 200 MG TAB PO (08:11)
[2021-05-05 08:25] VITALS: BP 128/48; PULSE 58; RESP 16; TEMP 36.2; O2SAT 94
== END 2021-05-05 08:40 | disposition home or self-care (01) ==
PROVIDERS: PCP Family Medicine; Visit Provider Urology
PROC: (CPT 52287; principal; 2021-05-05 07:30)
DX: N39.41 Urge incontinence (principal); E11.9 Type 2 diabetes mellitus without complications; I10 Essential (primary) hypertension; E78.00 Pure hypercholesterolemia, unspecified; N32.81 Overactive bladder
CPT/HCPCS: 52287; J0585; J2001; J2704

== ENCOUNTER 2021-05-14 08:09 | Outpatient (REF) | payer MEDICARE, BC, SELFPAY ==
[2021-05-14 15:18] LABS: Anion Gap 12.5 mmol/L (3-11); BUN 15 mg/dL (7-18); CO2 23.5 mmol/L (21.0-32.0); CREATININE 0.9 mg/dL (0.55-1.02); Calcium 9.2 mg/dL (8.5-10.1); Chloride 109 mmol/L (98-107); Glucose 175 mg/dL (74-106); Sodium 145 mmol/L (136-145)
== END 2021-05-14 08:10 | disposition home or self-care (01) ==
LOC: NCHCN 08:09
PROVIDERS: PCP Family Medicine; Visit Provider Family Medicine
DX: Z51.81 Encounter for therapeutic drug level monitoring (principal); I10 Essential (primary) hypertension
CPT/HCPCS: 80048

== ENCOUNTER 2021-05-27 01:47 | Outpatient (CLI) | payer MEDICARE, BC, SELFPAY ==
--- NOTE | 2021-05-27 | DI.MAMMO_ITS ---
Exam(s) MG MAMMO DIAGNOSTIC UNI EXAM: MG MAMMO DIAGNOSTIC UNI CLINICAL HISTORY: DIAGNOSTIC, F/U ABNL MAMMO, 6 MO F/U. TECHNIQUE: Craniocaudal and mediolateral oblique Full Field Digital Mammography views of the right b reast with Computer Aided Diagnosis followed by Tomosynthesis. COMPARISON: MG Screening Bilat Mammo from 09/16/2015 MG Screening Bilat Mammo from 03/09/2017 MG R. Spot - Same Day from 03/17/2017 MG MG mammo screening from 10/03/2018 MG MG MAMMO SCREENING from 11/13/2020 MG MG MAMMO SCREENING from 11/13/2020 US US BREAST RT COMPLETE from 11/18/2020 FINDINGS: Mammography/Tomosynthesis: Masses: Decreased prominence of small areas of nodularity in the retroareolar region of the right nadira ast. Previous ultrasound showed cluster of microcysts. Architectural Distortion: None seen. Microcalcifictions: No suspicious pleomorphic-type are seen. Skin Thickening/Nipple Retraction: None. IMPRESSION: 1. No evidence of malignancy is noted. 2. Unless there is more urgent need, follow-up screening mammography is recommended, as per [place] guidelines. 3. The findings were discussed with the patient on the date of the examination. BI-RADS Category 2 - Benign Findings Breast Density - Category B - Scattered areas of fibroglandular density A negative radiographic report should not delay biopsy if a dominant or clinically suspicious mass is present. Up to ten percent of cancers are not identified on mammography. A negative report may reinforce clinical impression. Adenosis and dense breasts may obscure an underlying neoplasm. False positive reports average 6 to 10%. Patient will receive a letter notifying them of these results.
== END 2021-05-27 02:07 ==
PROVIDERS: PCP Family Medicine; Visit Provider Family Medicine
DX: R92.8 Other abnormal and inconclusive findings on diagnostic imaging of breast (principal); R93.5 Abnormal findings on diagnostic imaging of other abdominal regions, including retroperitoneum
CPT/HCPCS: 77061; 77065; G0279

== ENCOUNTER 2021-07-15 04:36 | Outpatient (CLI) | payer MEDICARE, BC, SELFPAY ==
[2021-07-15 08:58] LABS: Hemoglobin A1C 7.4 % (<5.7)
[2021-07-15 10:59] LABS: ALT 96 U/L (14-59); AST 81 U/L (15-37); Albumin 3.5 g/dL (3.4-5.0); Alkaline Phosphatase 209 U/L (46-116); BUN 13 mg/dL (7-18); Bilirubin, Total 0.7 mg/dL (0.2-1.0); CREATININE 0.8 mg/dL (0.55-1.02); Calculated LDL 80 mg/dL (<100); Chloride 109 mmol/L (98-107); Cholesterol 178 mg/dL (<200); Glucose 126 mg/dL (74-106); HDL Cholesterol 31 mg/dL (40-60); Potassium 4.1 mmol/L (3.5-5.1); Sodium 145 mmol/L (136-145); Total Protein 7.2 g/dL (6.4-8.2); Triglyceride 339 mg/dL (<150)
[2021-07-16 13:21] LABS: Fructosamine 232 mcmol/L (200 - 285)
== END 2021-07-15 04:37 | disposition home or self-care (01) ==
LOC: LBO 04:36
PROVIDERS: PCP Family Medicine; Visit Provider Internal Medicine Endocrinology, Diabetes & Metabolism
DX: E11.65 Type 2 diabetes mellitus with hyperglycemia (principal); E78.00 Pure hypercholesterolemia, unspecified
CPT/HCPCS: 36415; 80053; 80061; 82985; 83036

== ENCOUNTER 2021-08-11 08:56 | Outpatient (REF) | payer MEDICARE, BC, SELFPAY ==
[2021-08-11 14:43] LABS: Anion Gap 11.2 mmol/L (3-11); BUN 17 mg/dL (7-18); CO2 25.8 mmol/L (21.0-32.0); CREATININE 0.9 mg/dL (0.55-1.02); Calcium 9.2 mg/dL (8.5-10.1); Chloride 104 mmol/L (98-107); Glucose 180 mg/dL (74-106); Potassium 4.4 mmol/L (3.5-5.1); Sodium 141 mmol/L (136-145)
== END 2021-08-11 08:57 | disposition home or self-care (01) ==
LOC: NCHCN 08:56
PROVIDERS: PCP Family Medicine; Visit Provider Family Medicine
DX: E87.6 Hypokalemia (principal)
CPT/HCPCS: 80048

== ENCOUNTER 2021-10-14 02:52 | Outpatient (CLI) | payer MEDICARE, BC, SELFPAY ==
[2021-10-14 10:03] LABS: Hemoglobin A1C 7.1 % (<5.7)
[2021-10-14 10:53] LABS: ALT 66 U/L (14-59); AST 51 U/L (15-37); Albumin 3.7 g/dL (3.4-5.0); Alkaline Phosphatase 167 U/L (46-116); Anion Gap 10.9 mmol/L (3-11); BUN 16 mg/dL (7-18); Bilirubin, Total 0.7 mg/dL (0.2-1.0); CO2 27.1 mmol/L (21.0-32.0); CREATININE 0.8 mg/dL (0.55-1.02); Calcium 9.1 mg/dL (8.5-10.1); Chloride 104 mmol/L (98-107); Glucose 171 mg/dL (74-106); Potassium 4.3 mmol/L (3.5-5.1); Sodium 142 mmol/L (136-145); Total Protein 7.4 g/dL (6.4-8.2)
[2021-10-15 12:44] LABS: Fructosamine 256 mcmol/L (200 - 285)
== END 2021-10-14 02:53 | disposition home or self-care (01) ==
LOC: LBO 02:52
PROVIDERS: PCP Family Medicine; Visit Provider Internal Medicine Endocrinology, Diabetes & Metabolism
DX: E11.65 Type 2 diabetes mellitus with hyperglycemia (principal)
CPT/HCPCS: 36415; 80053; 82985; 83036

== ENCOUNTER 2021-10-24 14:14 | Outpatient (REF) | payer MEDICARE, BC, SELFPAY ==
[2021-10-24 19:38] LABS: COMMENT (LAB VIEW ONLY) 176.79 mg/dL
== END 2021-10-24 14:15 | disposition home or self-care (01) ==
LOC: NCHCN 14:14
PROVIDERS: PCP Family Medicine; Visit Provider Family Medicine
DX: E11.9 Type 2 diabetes mellitus without complications (principal)
CPT/HCPCS: 82043; 82570

== ENCOUNTER 2021-11-27 01:14 | Outpatient (CLI) | payer MEDICARE, BC, SELFPAY ==
--- NOTE | 2021-11-27 12:00 | DI.MAMMO_ITS ---
Exam(s) MAMMO SCREENING EXAM: MAMMO SCREENING CLINICAL HISTORY: SCREENING, Z12.39. TECHNIQUE: Bilateral full field digital CC and MLO mammographic images were obtained with 3D tomosyn thesis and utilizing computer aided detection (CAD). COMPARISON: Prior mammograms were reviewed, the most recent being . FINDINGS: November 2020 and diagnostic right breast mammogram performed May 09. There are no new spiculated masses nor malignant appearing microcalcification groups. Multiple benign-appearing small noncalcified nodules noted both breasts, basically unchanged. There are no malignant-appearing microcalcification groups in either breast. There is no significant architectural distortion nor skin thickening-retraction. IMPRESSION: Stable benign findings. No radiographic evidence of malignancy. BI-RADS Category 2 - Benign Findings Breast Density - Category B - Scattered areas of fibroglandular density Breast density Category C or D implies that the patient has dense breast tissue. Dense breast tissue can make it harder to find cancer on a mammogram. Dense breast tissue is also associated with an incr eased risk of breast cancer. This information about the result of the mammogram report was provided to the patient to raise their awareness. Use this report when you speak with the patient about their risks for breast cancer, which includes their family history. At that time, you may recommend additional screening tests (Ultrasoun d or MRI) as these tests may add significant information. A negative radiographic report should not delay biopsy if a dominant or clinically suspicious mass is present. Up to ten percent of cancers are not identified on mammography. A negative report may reinforce clinical impression. Adenosis and dense breasts may obscure an underlying neoplasm. False positive reports average 6 to 10%. Patient will receive a letter notifying them of these results.
== END 2021-11-27 01:34 ==
PROVIDERS: PCP Family Medicine; Visit Provider Family Medicine
DX: Z12.31 Encounter for screening mammogram for malignant neoplasm of breast (principal)
CPT/HCPCS: 77063; 77067

== ENCOUNTER 2022-01-07 01:53 | Outpatient (CLI) | payer MEDICARE, BC, SELFPAY ==
[2022-01-07 09:11] LABS: Hemoglobin A1C 7.2 % (<5.7)
[2022-01-08 14:56] LABS: Fructosamine 268 mcmol/L (200 - 285)
== END 2022-01-07 01:54 | disposition home or self-care (01) ==
LOC: LBO 01:53
PROVIDERS: PCP Family Medicine; Visit Provider Internal Medicine Endocrinology, Diabetes & Metabolism
DX: E11.65 Type 2 diabetes mellitus with hyperglycemia (principal)
CPT/HCPCS: 36415; 82985; 83036

== ENCOUNTER 2022-04-10 01:38 | Outpatient (CLI) | payer MEDICARE, BC, SELFPAY ==
[2022-04-10 10:35] LABS: ALT 65 U/L (14-59); AST 42 U/L (15-37); Albumin 3.7 g/dL (3.4-5.0); Alkaline Phosphatase 182 U/L (46-116); Anion Gap 10.8 mmol/L (3-11); BUN 14 mg/dL (7-18); Bilirubin, Total 0.6 mg/dL (0.2-1.0); CO2 25.2 mmol/L (21.0-32.0); CREATININE 0.9 mg/dL (0.55-1.02); Calcium 8.7 mg/dL (8.5-10.1); Calculated LDL 69 mg/dL (<100); Chloride 107 mmol/L (98-107); Cholesterol 163 mg/dL (<200); Glucose 144 mg/dL (74-106); HDL Cholesterol 32 mg/dL (40-60); Sodium 143 mmol/L (136-145); TSH 2.85 uIU/mL (0.36-3.74); Total Protein 7.2 g/dL (6.4-8.2); Triglyceride 313 mg/dL (<150)
[2022-04-11 16:58] LABS: Fructosamine 231 mcmol/L (200 - 285)
== END 2022-04-10 01:39 | disposition home or self-care (01) ==
LOC: LBO 01:38
PROVIDERS: PCP Family Medicine; Visit Provider Internal Medicine Endocrinology, Diabetes & Metabolism
DX: E11.65 Type 2 diabetes mellitus with hyperglycemia (principal); E03.9 Hypothyroidism, unspecified; E78.00 Pure hypercholesterolemia, unspecified
CPT/HCPCS: 36415; 80053; 80061; 82985; 83036; 84443

== ENCOUNTER 2022-07-30 03:51 | Outpatient (CLI) | payer MEDICARE, BC, SELFPAY ==
[2022-07-30 09:52] LABS: Hemoglobin A1C 7.2 % (<5.7)
[2022-07-30 10:11] LABS: ALT 70 U/L (14-59); AST 65 U/L (15-37); Albumin 3.5 g/dL (3.4-5.0); Alkaline Phosphatase 154 U/L (46-116); Anion Gap 8.1 mmol/L (3-11); BUN 15 mg/dL (7-18); Bilirubin, Total 0.9 mg/dL (0.2-1.0); CO2 26.9 mmol/L (21.0-32.0); CREATININE 0.8 mg/dL (0.55-1.02); Calcium 9.1 mg/dL (8.5-10.1); Chloride 106 mmol/L (98-107); Estimated GFR 78.72 (mL/min/1.73m2); Glucose 126 mg/dL (74-106); Sodium 141 mmol/L (136-145); Total Protein 7.6 g/dL (6.4-8.2)
[2022-07-30 19:36] LABS: Albumin ug/mg Crea 33 (<30); Albumin, Ur 3.9 mg/dL (See Note); Creatinine, Ur 117.1 mg/dL (See Note)
[2022-08-01 00:25] LABS: Fructosamine 256 mcmol/L (200 - 285)
== END 2022-07-30 03:52 | disposition home or self-care (01) ==
LOC: LBO 03:51
PROVIDERS: PCP Family Medicine; Visit Provider Internal Medicine Endocrinology, Diabetes & Metabolism
DX: E11.65 Type 2 diabetes mellitus with hyperglycemia (principal); I10 Essential (primary) hypertension; E78.5 Hyperlipidemia, unspecified
CPT/HCPCS: 36415; 80053; 82043; 82570; 82985; 83036

== ENCOUNTER → 2022-09-09 14:26 | Outpatient (BNVA) | payer MEDICARE, BC, SELFPAY | PROVIDERS: PCP Family Medicine; Referring Provider Family Medicine; Visit Provider Nurse Practitioner Gerontology | DX: N39.41 Urge incontinence (principal); N32.81 Overactive bladder | CPT/HCPCS: 99213 ==

== ENCOUNTER 2022-10-08 06:01 | Day surgery (SDC) | payer MEDICARE, BC, SELFPAY ==
[2022-10-08 06:20] VITALS: BP 137/62; PULSE 77; RESP 18; TEMP 36.2; O2SAT 95
[2022-10-08] MEDS: Ciprofloxacin 250 MG TAB PO (06:40)
[2022-10-08] MEDS: Lactated Ringers 1,000 ML 80 ML IV (06:50)
--- NOTE | 2022-10-08 06:59 | W.PM.HP.N ---
Date of service: 10/08/22 Time of Service: 06:59 Assessment and Plan Assessment and plan (1) Urgency incontinence: Status: Acute (2) Overactive bladder: Status: Acute Assessment and plan: We will repeat her cystoscopy with transurethral injection of Botox into the detrusor muscle. History of Present Illness History of Present Illness Chief Complaint: Urgency Incontinence due to overactive bladder Narrative: Sherice is a 71-year-old female who has a history of urgency incontinence.? She has failed medical management but did show improvement with intravesical injections of Botox.? She has had Botox injection to the bladder done in 2019 and again in 2020.? With her most recent round of injections in 2020 she notes that the incontinence was manageable until approximately 2 to 3 months ago and since then voiding symptoms have worsened especially the urge incontinence. She is interested in repeat intravesical injection of Botox.? She states that her health history over the past year has not changed.? She has not had COVID ever. She denies dysuria, urinary retention, gross hematuria or adverse reaction to the Botox.? Review of Systems Narrative: No fevers or chills No vision change or dysphasia Hx diabetes. No thyroid dysfunction No shortness of breath, cough or hemoptysis No chest pain or palpitations GERD. No hepatitis, ulcers, jaundice, diarrhea or constipation No seizures, strokes or peripheral neuropathy No bleeding disorders or anemia No gout PFSH All Active Problems (Updated 10/08/22 @ 07:04 by Nahum Colon MD) Overactive bladder (Acute) Urgency incontinence (Acute 05/26/16) Medical History (Updated 10/08/22 @ 07:04 by Nahum Colon MD) Diabetes mellitus High cholesterol History of esophageal stricture Hypertension Surgical History Cholecystectomy Colonoscopy - MAC (02/05/17) History of toe surgery Tubal Ligation, Family History Maternal Aunt Colon cancer Social History Smoking/Tobacco Use Status: Never Smoking risk assessment performed?: Yes Alcohol Intake: former Drug use: Never Substance use type: does not use Do you feel safe at home: Yes Do you feel safe in your relationship?: Yes Meds Allergies and Home Medications Allergies Allergy/AdvReac Type Severity Reaction Status Date / Time sulfamethoxazole Allergy Intermediate Hives Unverified 10/08/22 06:17 [From Bactrim] trimethoprim [From Bactrim] Allergy Intermediate Hives Unverified 10/08/22 06:17 metformin AdvReac Intermediate Diarrhea Unverified 10/08/22 06:17 amoxicillin AdvReac Diarrhea Unverified 10/08/22 06:17 lisinopril AdvReac cough Unverified 10/08/22 06:17 Home Medications Medication Instructions Recorded Confirmed Type Vitamin D3 1,000 unit PO DAILY 04/22/16 10/08/22 History aspirin 81 mg chewable tablet 81 mg PO DAILY 04/22/16 10/08/22 History (Aspirin Low-Strength) esomeprazole magnesium 40 mg 40 mg PO BID 04/22/16 10/08/22 History capsule,delayed release (Nexium) losartan 25 mg tablet (Cozaar) 50 mg PO DAILY 04/22/16 10/08/22 History rosuvastatin 20 mg tablet (Crestor) 20 mg PO DAILY 04/22/16 10/08/22 History insulin glargine 100 unit/mL 46 unit subcut HS 12/27/18 10/08/22 History subcutaneous solution (Lantus U-100 Insulin) empagliflozin 25 mg tablet 25 mg PO DAILY 04/15/21 10/08/22 History (Jardiance) insulin lispro 100 unit/mL 10 - 20 unit subcut DIRECTED 04/15/21 10/08/22 History subcutaneous half-unit pen (Humalog Garrett KwikPen (U-100)) spironolactone 25 mg tablet 25 mg PO DAILY 05/02/21 10/08/22 History dulaglutide 1.5 mg/0.5 mL 1.5 mg subcut QWEEK 09/09/22 10/08/22 History subcutaneous pen injector (Trulicity) Exam Const General: cooperative and comfortable Neck Neck: supple Resp Effort & Inspection: normal respiratory effort Auscultation: clear to auscultation bilaterally Cardio Rate: regular rate Rhythm: regular rhythm GI Palpation: soft and no masses Neuro General: patient alert, patient awake and patient oriented x3 Results Last Vital Signs Temp 36.2 C L 10/08/22 06:20 Pulse 77 10/08/22 06:20 Resp 18 10/08/22 06:20 BP 137/62 10/08/22 06:20 Pulse Ox 95 10/08/22 06:20
--- NOTE | 2022-10-08 07:03 | W.ANESPRE ---
General Info Date of Service Date Performed: 10/08/22 Height: 5 ft 4 in Weight: 90.6 kg Body Mass Index (BMI): 34.2 Surgical Procedure: Operation Date: 10/08/22 07:40 Proposed Procedure Side Surgeon p Cystoscopy/Transurethral Injection Botox Nahum Colon MD Meds Allergies and Home Medications Allergies Allergy/AdvReac Type Severity Reaction Status Date / Time sulfamethoxazole Allergy Intermediate Hives Unverified 10/08/22 06:17 [From Bactrim] trimethoprim [From Bactrim] Allergy Intermediate Hives Unverified 10/08/22 06:17 metformin AdvReac Intermediate Diarrhea Unverified 10/08/22 06:17 amoxicillin AdvReac Diarrhea Unverified 10/08/22 06:17 lisinopril AdvReac cough Unverified 10/08/22 06:17 Home Medication Medication Instructions Recorded Vitamin D3 1,000 unit PO DAILY 04/22/16 aspirin 81 mg chewable tablet 81 mg PO DAILY 04/22/16 (Aspirin Low-Strength) esomeprazole magnesium 40 mg 40 mg PO BID 04/22/16 capsule,delayed release (Nexium) losartan 25 mg tablet (Cozaar) 50 mg PO DAILY 04/22/16 rosuvastatin 20 mg tablet (Crestor) 20 mg PO DAILY 04/22/16 insulin glargine 100 unit/mL 46 unit subcut HS 12/27/18 subcutaneous solution (Lantus U-100 Insulin) empagliflozin 25 mg tablet 25 mg PO DAILY 04/15/21 (Jardiance) insulin lispro 100 unit/mL 10 - 20 unit subcut DIRECTED 04/15/21 subcutaneous half-unit pen (Humalog Garrett KwikPen (U-100)) spironolactone 25 mg tablet 25 mg PO DAILY 05/02/21 dulaglutide 1.5 mg/0.5 mL 1.5 mg subcut QWEEK 09/09/22 subcutaneous pen injector (Trulicity) Current Visit Medications: Current Medications Generic Name Dose Route Start Last Admin Trade Name Freq PRN Reason Stop Dose Admin Ciprofloxacin HCl 250 mg 10/08/22 06:00 10/08/22 06:40 Ciprofloxacin 250 Mg Tab PO 10/08/22 16:00 250 mg PREOP DANICA Administration OnabotulinumtoxinA 100 units/ 0 units 10/08/22 06:00 Sodium Chloride 20 ml IJ 10/08/22 16:00 TODAY DANICA Ringer's Solution 1,000 mls @ 80 mls/hr 10/08/22 06:00 10/08/22 06:50 IV 11/06/22 23:59 80 mls/hr INFUSION DANICA Administration IV Miscellaneous Supplies 1 each 10/08/22 06:00 Iv Access IV 11/06/22 23:59 DIRECTED DANICA Sodium Chloride 0 ml 10/08/22 06:00 Normal Saline Flush 10 Ml Syr IV 11/06/22 23:59 PRN PRN Sodium Chloride 0 ml 10/08/22 06:00 Normal Saline 10 Ml Vial IJ 11/06/22 23:59 DIRECTED PRN Sterile Water 0 ml 10/08/22 06:00 Water,Injection,Sterile 10 Ml Vial IJ 11/06/22 23:59 DIRECTED PRN PFSH Active Problems Active Problems: Problem Status Onset Code Urgency incontinence N39.41 Overactive bladder N32.81 Urgency incontinence 05/26/16 N39.41 Medical History Medical History (Updated 10/08/22 @ 07:04 by Nahum Colon MD) Diabetes mellitus High cholesterol History of esophageal stricture Hypertension Surgical History Surgical History Cholecystectomy Colonoscopy - MAC (02/05/17) History of toe surgery Tubal Ligation, Tobacco Smoking/Tobacco Use Status: Never Alcohol Alcohol Intake: former Substance Use Substance use: Never Substance use type: does not use Vital Signs and Lab Results Vital Signs Most Recent Vital Signs in EMR: Most Recent Vital Signs Temp Pulse Resp BP Pulse Ox 36.2 C L 77 18 137/62 95 10/08/22 06:20 10/08/22 06:20 10/08/22 06:20 10/08/22 06:20 10/08/22 06:20 Lab Results Blood Type / Crossmatch: No Data to Display Complete Blood Count: No Data to Display Complete Metabolic Panel: No Data to Display Liver Function Panel: No Data to Display Coagulation Panel: No Data to Display Cardiac Panel: No Data to Display Arterial Blood Gas: No Data to Display Venous Blood Gas: No Data to Display Pancreas Panel: No Data to Display Thyroid Panel: No Data to Display Infectious Disease: No Data to Display Blood Cultures: No Data to Display Toxicology Panel: No Data to Display Imaging and Studies Imaging and Studies Study information below may be from another EMR and interpreted by another provider. Please see original notes in EMR for more complete details. Stress Test Summary: 04/22/16: Ventricular Function (Wall Motion): The calculated left ventricular ejection fraction after stress: 56%. LV global systolic function is normal. No left ventricular regional motion abnormality. Echocardiogram Summary: 03/28/14: SUMMARY: Normal biventricular size and systolic function. No significant valvular pathology. Pulmonary artery pressures within normal limits. Mild left atrial enlargement. Of note, LVEF 75% on 12/20/06 study. Technically limited study then. Anesthesia Assessment and Plan Anesthesia History Personal History: No History of Anesthesia Complications Family History: No Family History of Anesthesia Complications Exercise Tolerance Exercise Tolerance: Metabolic Equivalents>4 Pertinent Negatives Pertinent Negatives: No Symptoms of GERD, No Major Cardiovascular Symptoms or Complaints, No Major Pulmonary Symptoms or Complaints and No History of CVA/TIA Cardiac & Pulmonary Exam Cardiac Exam: Normal S1/S2 Heart Sounds Pulmonary Exam: Clear Bilateral Breath Sounds Implantable Cardiac Device Does patient have a Pacemaker or an ICD?: No Airway Exam Known Difficult Airway: No Mallampati Class: 4 Mouth Opening: Narrow (< 3cm) Thyromental Distance: Less than 3 cm Neck Range of Motion: Limited ROM Neck Circumference: Thick Teeth Condition: Normal Dentition ASA Classification ASA Score: ASA 2 Emergency Case?: No NPO Status NPO Status: NPO Clears >2 hours, Solids >8 hours Anesthesia Plan Resuscitation Status: Full Code Anesthesia Technique: General Anesthesia Airway Planned: Natural Airway Monitors Used: Standard Monitors
[2022-10-08 07:05] VITALS: BMI 34.2
[2022-10-08] MEDS: Lidocaine 2% Jelly 6 ML SYR (08:05)
[2022-10-08] MEDS: BOTULINUM TOXIN TYPE A 100 UNITS, Normal Saline 20 ML IJ (08:05)
--- NOTE | 2022-10-08 08:10 | PDOC.DSDIS_ITS ---
Date of service: 10/08/22 Time of Service: 08:10 Discharge Plan Disposition Patient Disposition: HOME Condition: Good Discharge Details Reason For Visit: Urgency incontinence Attending Provider: Nahum Colon Primary Care Provider: Cintia Vázquez Home Meds and New Rx's Prescriptions: No Action Trulicity 1.5 mg/0.5 mL pen injector 1.5 mg subcut QWEEK Jardiance 25 mg tablet 25 mg PO DAILY insulin lispro [Humalog Garrett KwikPen U-100] 100 unit/mL insulin pen, half- unit 10 - 20 unit subcut DIRECTED esomeprazole magnesium [Nexium] 40 MG capsule,delayed release(DR/EC) 40 mg PO BID losartan [Cozaar] 25 MG tablet 50 mg PO DAILY aspirin [Aspirin Low-Strength] 81 MG tablet,chewable 81 mg PO DAILY rosuvastatin [Crestor] 20 MG tablet 20 mg PO DAILY VITAMIN D3 1,000 UNIT capsule 1,000 unit PO DAILY insulin glargine [Lantus U-100 Insulin] 100 unit/mL Solution 46 unit SUBCUT HS spironolactone 25 mg Tablet 25 mg PO DAILY Discharge Instructions Additional Instructions: call office with progress report in @ 1 week Followup appt in 5 to 6 months Activity:: Activity as Tolerated Shower/Bathe:: 24 hours Equipment/Supplies:: No Equipment Needed Diet:: As Tolerated DS: Diagnosis Discharge Diagnosis (1) Urgency incontinence: Status: Acute (2) Overactive bladder: Status: Acute
--- NOTE | 2022-10-08 08:13 | ROE_ITS ---
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 She has failed maximal medical therapy for her overactive bladder. She has had benefit from an injection of Botox into the detrusor muscle over 6 months ago. She presents now for repeat injection. 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 After successful induction of general anesthesia, she was placed in the dorsal lithotomy position. Her genitalia was prepped and draped. 2% Xylocaine jelly was instilled into the urethra to act as a local anesthetic. A 20 [place] urethrotome sheath was passed through the urethra into the bladder. The bladder was inspected with a 30 degree lens. Both ureteral orifices appeared normal with no blood coming from either side. The remainder of the bladder showed a few cystic areas on the mucosa. These areas had the appearance of cystitis cystica. No papillary or nodular bladder tumors were found. We then used a transurethral injection system to inject a total of 100 units of Botox into the detrusor muscle. We diluted the solution in 20 mL of dilutant and and injected 1 mL in 20 different locations. We used a grid pattern of 4 horizontal rows and 5 vertical rows. We avoided the bladder neck and the ureteral orifices. The bladder was then emptied and the scope was removed. She tolerated this procedure well with no complications.
--- NOTE | 2022-10-08 08:19 | W.ANESPOSTOP ---
Postoperative Evaluation Date, Time and Location Date Performed: 10/08/22 Time Performed: 08:19 Patient Location: Day Surgery Unit Vital Signs Most Recent Imported Vital Signs: Most Recent Vital Signs Temp Pulse Resp BP Pulse Ox 36.2 C L 77 18 137/62 95 10/08/22 06:20 10/08/22 06:20 10/08/22 06:20 10/08/22 06:20 10/08/22 06:20 Most Recent Manually Entered Vital Signs: Adult Blood Pressure: 109/45 Heart Rate: 63 Respirations: 12 Oxygen Saturation (%): 94 Temperature (C): 36.1 C Pain Score (0-10 Scale): 0 Pain Score Most Recent Pain Score: Most Recent Pain Score Pain Level 0 10/08/22 06:20 Assessment Mental Status: Awake (Alert & Oriented to Patient Baseline) Airway and Respiratory Function: Patent airway with normal (patient baseline) respiratory exam Cardiovascular Function: Hemodynamically Stable Hydration Status: Adequately Hydrated Nausea & Vomiting: No Nausea or Vomiting Pain: Pt. Denies Any Pain Peripheral Nerve Block: Patient did not receive a nerve block
[2022-10-08 08:20] VITALS: BP 109/45; PULSE 58; RESP 17; TEMP 36.1; O2SAT 93
[2022-10-08 08:21] VITALS: BP 109/45; PULSE 63; RESP 12; TEMPC 36.1; O2SAT 94
[2022-10-08 08:50] VITALS: BP 115/42; PULSE 51; RESP 18; TEMP 36.4; O2SAT 96
[2022-10-08] MEDS: Phenazopyridine 200 MG TAB PO (08:55)
== END 2022-10-08 09:10 | disposition home or self-care (01) ==
PROVIDERS: PCP Family Medicine; Visit Provider Urology
PROC: (CPT 52287; principal; 2022-10-08 07:30)
DX: N32.81 Overactive bladder (principal); N39.41 Urge incontinence; E11.9 Type 2 diabetes mellitus without complications; I10 Essential (primary) hypertension
CPT/HCPCS: 52287; J0585; J1100; J1885; J2250; J2405

== ENCOUNTER 2022-12-28 17:49 | Outpatient (REF) | payer MEDICARE, BC, SELFPAY ==
[2022-12-28 15:34] LABS: Anion Gap 8.6 mmol/L (3-11); BUN 15 mg/dL (7-18); CO2 25.4 mmol/L (21.0-32.0); CREATININE 0.8 mg/dL (0.55-1.02); Calcium 9.5 mg/dL (8.5-10.1); Chloride 108 mmol/L (98-107); Estimated GFR 78.72 (mL/min/1.73m2); Glucose 132 mg/dL (74-106); Potassium 4.1 mmol/L (3.5-5.1); Sodium 142 mmol/L (136-145)
== END 2022-12-28 17:50 | disposition home or self-care (01) ==
LOC: NCHCN 17:49
PROVIDERS: PCP Family Medicine; Visit Provider Family Medicine
DX: E11.9 Type 2 diabetes mellitus without complications (principal)
CPT/HCPCS: 80048; 83036

== ENCOUNTER 2023-01-06 01:34 | Outpatient (CLI) | payer MEDICARE, BC, SELFPAY ==
--- NOTE | 2023-01-06 | DI.MAMMO_ITS ---
Exam(s) MAMMO SCREENING EXAM: MAMMO SCREENING CLINICAL HISTORY: SCREENING, Z12.39 TECHNIQUE: Bilateral full field digital CC and MLO mammographic images were obtained with 3D tomosyn thesis and utilizing computer aided detection (CAD). COMPARISON: Available for comparison. FINDINGS: Masses/Architectural Distortion: There is scattered well-circumscribed small nodules in both breasts. No suspicious nodules or areas of architectural distortion are present. Microcalcifications: No suspicious pleomorphic-type are seen. Skin Thickening/Nipple Retraction: None. IMPRESSION: 1. No significant interval change with no specific features of malignancy noted. 2. Unless there is more urgent need, screening mammography is recommended, as per [place] [employer] guidelines. BI-RADS Category 2 - Benign Findings Breast Density - Category B - Scattered areas of fibroglandular density Breast density category C or D implies that the patient has dense breast tissue. Dense breast tissue is very common and is not abnormal but dense breast tissue can make it harder to find cancer on a ma mmogram. Also, dense breast tissue may increase their breast cancer risk. This information about the result of the mammogram report was provided to the patient to raise their awareness. Use this report when you speak with the patient about their risks for breast cancer, which includes their family hist ory. At that time, you may recommend for more screening tests (Ultrasound or MRI) as they might be us eful based on their risk. A negative radiographic report should not delay biopsy if a dominant or clinically suspicious mass is present. Up to ten percent of cancers are not identified on mammography. A negative report may reinforce clinical impression. Adenosis and dense breasts may obscure an underlying neoplasm. False positive reports average 6 to 10%. Patient will receive a letter notifying them of these results.
== END 2023-01-06 01:54 ==
PROVIDERS: PCP Family Medicine; Visit Provider Family Medicine
DX: Z12.31 Encounter for screening mammogram for malignant neoplasm of breast (principal)
CPT/HCPCS: 77063; 77067

== ENCOUNTER 2023-01-20 02:35 | Outpatient (CLI) | payer MEDICARE, BC, SELFPAY ==
[2023-01-20 07:56] LABS: Hemoglobin A1C 7.4 % (<5.7)
[2023-01-20 07:58] LABS: ALT 43 U/L (14-59); AST 35 U/L (15-37); Albumin 3.6 g/dL (3.4-5.0); Alkaline Phosphatase 164 U/L (46-116); Anion Gap 7.6 mmol/L (3-11); BUN 19 mg/dL (7-18); Bilirubin, Total 0.9 mg/dL (0.2-1.0); CO2 26.4 mmol/L (21.0-32.0); Calcium 9.2 mg/dL (8.5-10.1); Chloride 103 mmol/L (98-107); Estimated GFR 59.86 (mL/min/1.73m2); Glucose 157 mg/dL (74-106); Sodium 137 mmol/L (136-145); Total Protein 7.6 g/dL (6.4-8.2)
[2023-01-21 18:31] LABS: Fructosamine 262 mcmol/L (200 - 285)
== END 2023-01-20 02:36 | disposition home or self-care (01) ==
LOC: LBO 02:35
PROVIDERS: PCP Family Medicine; Visit Provider Internal Medicine Endocrinology, Diabetes & Metabolism
DX: E11.65 Type 2 diabetes mellitus with hyperglycemia (principal)
CPT/HCPCS: 80053; 82985; 83036

== ENCOUNTER 2023-02-19 00:48 | Outpatient (CLI) | payer MEDICARE, BC, SELFPAY ==
--- NOTE | 2023-02-19 | DI.DEXA_ITS ---
Exam(s) XR DEXA BONE DENSITY W/WO ROXIE EXAM: XR DEXA BONE DENSITY W/WO ROXIE CLINICAL HISTORY: MENOPAUSAL Z78.0 TECHNIQUE: [employer] Horizon C densitometer analysis of left hip, lumbar spine and left forearm. Lat eral survey image of the thoracic and lumbar spine. COMPARISON: DX DEXA BONE DENSITY WITH ROXIE from 03/22/2018 FINDINGS: Lateral view of the thoracic and lumbar spine shows no evidence of compression fractures. The mid th oracic vertebral bodies are not well seen. Bone mineral density measurements of the lumbar spine correspond to a total T-score of 1.1, in the n ormal range. 2.2 percent increase compared with 2018. Bone mineral density measurements of the left hip correspond to a total T-score of -0.6. The femora l neck T-score is - 1.3, in the osteopenic range. 5.7 percent decrease from 2018.. The left forearm bone mineral density measurements correspond to a T-score of the distal 3rd of -0.4 , in the normal range. 6.6 percent decrease from 2018.. IMPRESSION: Normal bone mineral density of the lumbar spine and left forearm. Osteopenia of the left hip.
== END 2023-02-19 01:08 ==
LOC: DI 00:48
PROVIDERS: PCP Family Medicine; Visit Provider Family Medicine
DX: Z78.0 Asymptomatic menopausal state (principal)
CPT/HCPCS: 77080

== ENCOUNTER → 2023-04-13 13:53 | Outpatient (BNVA) | payer MEDICARE, BC, SELFPAY | PROVIDERS: PCP Family Medicine; Referring Provider Family Medicine; Visit Provider Nurse Practitioner Gerontology | DX: N39.41 Urge incontinence (principal); N32.81 Overactive bladder | CPT/HCPCS: 99213 ==

== ENCOUNTER 2023-04-22 12:14 | Emergency (ER) | payer MEDICARE, BC, SELFPAY ==
[2023-04-22 12:25] VITALS: BP 140/44; PULSE 60; RESP 18; TEMP 36.7; O2SAT 98
--- NOTE | 2023-04-22 14:25 | NUR.NOTE ---
Nursing Note:Patient was not in room when provider attempted to speak with her. Unable to find her in the dept
== END 2023-04-22 14:16 | disposition other institution (70) ==
PROVIDERS: PCP Family Medicine
DX: Z53.21 Procedure and treatment not carried out due to patient leaving prior to being seen by health care provider (principal)

== ENCOUNTER 2023-05-10 14:45 | Outpatient (REF) | payer MEDICARE, BC, SELFPAY ==
[2023-05-10 14:32] LABS: Abs Immature Grans 0.02 10^3/uL (0.0-0.06); Absolute Basophil Count 0.05 10^3/uL (0.0-0.2); Absolute Eosinophil Count 0.12 10^3/uL (0.0-0.7); Absolute Lymphocyte Count 1.55 10^3/uL (1.2-3.4); Absolute Monocyte Count 0.99 10^3/uL (0.1-0.8); Absolute Neutrophil Count 6.64 10^3/uL (1.2-6.7); Basophils % 0.5; Eosinophils % 1.3; HCT 47.1 % (36.0-46.0); HGB 15.8 g/dL (11.2-15.7); Immature Grans % 0.2; Lymphocytes % 16.5; MCH 30.3 pg (27.0-33.0); MCHC 33.5 % (32.0-36.0); MCV 90 fL (80-95); Monocytes % 10.6; Neutrophils % 70.9; Platelet Count 204 10^3/uL (130-400); RBC 5.21 10^6/uL (3.93-5.22); RDW 13.6 % (11.7-14.6); WBC 9.37 10^3/uL (4.4-10.8)
[2023-05-10 15:02] LABS: ALT 33 U/L (14-59); AST 21 U/L (15-37); Albumin 3.6 g/dL (3.4-5.0); Alkaline Phosphatase 155 U/L (46-116); Anion Gap 12.7 mmol/L (3-11); BUN 22 mg/dL (7-18); Bilirubin, Total 0.9 mg/dL (0.2-1.0); CO2 22.3 mmol/L (21.0-32.0); CREATININE 1.1 mg/dL (0.55-1.02); Calcium 9.7 mg/dL (8.5-10.1); Chloride 101 mmol/L (98-107); Estimated GFR 53.39 (mL/min/1.73m2); Glucose 176 mg/dL (74-106); Potassium 4.4 mmol/L (3.5-5.1); Sodium 136 mmol/L (136-145); Total Protein 7.5 g/dL (6.4-8.2)
[2023-05-10 18:40] LABS: C Diff PCR Positive (Negative)
== END 2023-05-10 14:46 | disposition home or self-care (01) ==
LOC: LBN 14:45
PROVIDERS: PCP Family Medicine; Visit Provider Nurse Practitioner Family
DX: R19.7 Diarrhea, unspecified (principal)
CPT/HCPCS: 80053; 87493; 82272; 85025; 87230

== ENCOUNTER 2023-06-07 16:46 | Outpatient (REF) | payer MEDICARE, BC, SELFPAY ==
[2023-06-07 19:09] LABS: C Diff PCR Positive (Negative)
== END 2023-06-07 16:47 | disposition home or self-care (01) ==
LOC: NCHCN 16:46
PROVIDERS: PCP Family Medicine; Visit Provider Family Medicine
DX: A04.72 Enterocolitis due to Clostridium difficile, not specified as recurrent (principal)
CPT/HCPCS: 87493

== ENCOUNTER 2023-06-11 01:10 | Outpatient (RCR) | payer MEDICARE, BC, SELFPAY ==
[2023-06-11 08:55] VITALS: BP 128/60; PULSE 68; RESP 17; TEMP 36; O2SAT 98
[2023-06-11] MEDS: Normal Saline Flush 10 ML SYR IVP (09:14)
[2023-06-11 11:00] VITALS: BP 131/66; PULSE 62; RESP 18; TEMP 36.2; O2SAT 97
== END 2023-07-08 23:59 | disposition home or self-care (01) ==
LOC: INF 01:10
PROVIDERS: PCP Family Medicine; Visit Provider Nurse Practitioner Family
DX: A04.72 Enterocolitis due to Clostridium difficile, not specified as recurrent (principal)
CPT/HCPCS: 96365; J0565

== ENCOUNTER 2023-06-15 10:53 | Outpatient (REF) | payer MEDICARE, BC, SELFPAY ==
[2023-06-15 16:00] LABS: HCT 42.1 % (36.0-46.0); HGB 14.2 g/dL (11.2-15.7); MCH 30.1 pg (27.0-33.0); MCHC 33.7 % (32.0-36.0); MCV 89 fL (80-95); MPV 12.3 fL (8.0-11.0); Platelet Count 194 10^3/uL (130-400); RBC 4.71 10^6/uL (3.93-5.22); RDW 13.6 % (11.7-14.6); RDW-SD 44.8 fL; WBC 12.42 10^3/uL (4.4-10.8)
[2023-06-15 16:01] LABS: ESR 75 mm/hr (0-30)
[2023-06-15 16:15] LABS: ALT 112 U/L (14-59); AST 126 U/L (15-37); Albumin 3.1 g/dL (3.4-5.0); Alkaline Phosphatase 218 U/L (46-116); Anion Gap 11.6 mmol/L (3-11); BUN 12 mg/dL (7-18); Bilirubin, Total 0.8 mg/dL (0.2-1.0); C-Reactive Protein 11.55 mg/dL (0.0-0.3); CO2 23.4 mmol/L (21.0-32.0); CREATININE 0.8 mg/dL (0.55-1.02); Calcium 8.8 mg/dL (8.5-10.1); Chloride 104 mmol/L (98-107); Estimated GFR 78.24 (mL/min/1.73m2); Glucose 148 mg/dL (74-106); Potassium 3.8 mmol/L (3.5-5.1); Sodium 139 mmol/L (136-145); Total Protein 6.9 g/dL (6.4-8.2)
[2023-06-16 10:23] LABS: Creatine Kinase 41 U/L (26-192)
== END 2023-06-15 10:54 | disposition home or self-care (01) ==
LOC: NCHCN 10:53
PROVIDERS: PCP Family Medicine; Visit Provider Physician Assistant
DX: R00.2 Palpitations; M60.9 Myositis, unspecified
CPT/HCPCS: 80053; 82550; 85027; 85652; 86140

== ENCOUNTER 2023-07-07 01:40 | Outpatient (CLI) | payer MEDICARE, BC, SELFPAY ==
[2023-07-07 13:01] LABS: Hemoglobin A1C 7.5 % (<5.7)
[2023-07-08 17:47] LABS: Fructosamine 254 mcmol/L (200 - 285)
== END 2023-07-07 01:41 | disposition home or self-care (01) ==
LOC: LOS 01:41
PROVIDERS: PCP Family Medicine; Visit Provider Internal Medicine Endocrinology, Diabetes & Metabolism
DX: E11.65 Type 2 diabetes mellitus with hyperglycemia (principal)
CPT/HCPCS: 36415; 82985; 83036

== ENCOUNTER → 2023-09-13 14:47 | Outpatient (BNVA) | payer MEDICARE, BC, SELFPAY | PROVIDERS: PCP Family Medicine; Visit Provider Nurse Practitioner Gerontology | DX: N39.41 Urge incontinence (principal); N32.81 Overactive bladder | CPT/HCPCS: 99213 ==

== ENCOUNTER 2023-10-18 06:11 | Day surgery (SDC) | payer MEDICARE, BC, SELFPAY ==
[2023-10-18 06:34] VITALS: BP 140/65; PULSE 64; RESP 16; TEMP 36.6; O2SAT 96
[2023-10-18] MEDS: Ciprofloxacin 250 MG TAB PO (06:45)
[2023-10-18] MEDS: Lactated Ringers 1,000 ML 80 ML IV (07:00)
--- NOTE | 2023-10-18 07:01 | ANES.PREOP_ITS ---
General Info Date of Service Date Performed: 10/18/23 Height: 5 ft 4 in Weight: 87.4 kg Body Mass Index (BMI): 33.0 Surgical Procedure: Operation Date: 10/18/23 07:40 Proposed Procedure Side Surgeon p Cystoscopy/Transurethral Injection of Botox Nahum Colon MD Meds Allergies and Home Medications Allergies Allergy/AdvReac Type Severity Reaction Status Date / Time vancomycin Allergy Severe Other (See Verified 10/18/23 07:10 Comment) sulfamethoxazole Allergy Intermediate Hives Unverified 10/18/23 06:32 [From Bactrim] trimethoprim [From Bactrim] Allergy Intermediate Hives Unverified 10/18/23 06:32 metformin AdvReac Intermediate Diarrhea Unverified 10/18/23 06:32 amoxicillin AdvReac Diarrhea Unverified 10/18/23 06:32 lisinopril AdvReac cough Unverified 10/18/23 06:32 Home Medication Medication Instructions Recorded Vitamin D3 1,000 unit PO DAILY 04/22/16 aspirin 81 mg chewable tablet 81 mg PO DAILY 04/22/16 (Aspirin Low-Strength) esomeprazole magnesium 40 mg 40 mg PO BID 04/22/16 capsule,delayed release (Nexium) losartan 25 mg tablet (Cozaar) 50 mg PO DAILY 04/22/16 rosuvastatin 20 mg tablet (Crestor) 20 mg PO DAILY 04/22/16 insulin glargine 100 unit/mL 46 unit subcut HS 12/27/18 subcutaneous solution (Lantus U-100 Insulin) empagliflozin 25 mg tablet 25 mg PO DAILY 04/15/21 (Jardiance) insulin lispro 100 unit/mL 10 - 20 unit subcut DIRECTED 04/15/21 subcutaneous half-unit pen (Humalog Garrett KwikPen (U-100)) spironolactone 25 mg tablet 25 mg PO DAILY 05/02/21 paroxetine HCl 10 mg tablet 10 mg PO DAILY 04/13/23 semaglutide 0.25 mg or 0.5 mg (2 0.25 mg subcut QWEEK 04/13/23 mg/3 mL) subcutaneous pen injector (Ozempic) Current Visit Medications: Current Medications Generic Name Dose Route Start Last Admin Trade Name Freq PRN Reason Stop Dose Admin Ciprofloxacin HCl 250 mg 10/18/23 06:00 10/18/23 06:45 Ciprofloxacin 250 Mg Tab PO 10/18/23 16:00 250 mg PREOP DANICA Administration OnabotulinumtoxinA 100 units/ 0 units 10/18/23 06:00 Sodium Chloride 20 ml IJ 10/18/23 16:00 DIRECTED DANICA Ringer's Solution 1,000 mls @ 80 mls/hr 10/18/23 06:00 IV 10/18/23 23:59 [facility] IV Miscellaneous Supplies 1 each 10/18/23 06:00 Iv Access IV 10/18/23 23:59 DIRECTED DANICA Sodium Chloride 0 ml 10/18/23 06:00 Normal Saline Flush 10 Ml Syr IV 10/18/23 23:59 PRN PRN Sodium Chloride 0 ml 10/18/23 06:00 Normal Saline 10 Ml Vial IJ 10/18/23 23:59 DIRECTED PRN Sterile Water 0 ml 10/18/23 06:00 Water,Injection,Sterile 10 Ml Vial IJ 10/18/23 23:59 DIRECTED PRN PFSH Active Problems Active Problems: Problem Status Onset Code Urgency incontinence 05/26/16 N39.41 Overactive bladder N32.81 Medical History Medical History (Updated 10/15/23 @ 11:04 by Darin Lowery) Esophageal stricture Last endoscopy for stretching 10/14/23 Diabetes mellitus Hypertension High cholesterol History of esophageal stricture Surgical History Surgical History (Updated 10/18/23 @ 06:33 by Millie Blake) History of esophagogastroduodenoscopy (EGD) 10/14/23 [facility] History of toe surgery Tubal Ligation, Colonoscopy - MAC (02/05/17) Cholecystectomy Tobacco Smoking/Tobacco Use Status: Never Alcohol Alcohol Intake: former Substance Use Substance use: Never Substance use type: does not use Vital Signs and Lab Results Vital Signs Most Recent Vital Signs in EMR: Most Recent Vital Signs Temp Pulse Resp BP Pulse Ox 36.6 C 64 16 140/65 96 10/18/23 06:34 10/18/23 06:34 10/18/23 06:34 10/18/23 06:34 10/18/23 06:34 Lab Results Blood Type / Crossmatch: No Data to Display Complete Blood Count: No Data to Display Complete Metabolic Panel: No Data to Display Liver Function Panel: 2 No Data to Display Coagulation Panel: No Data to Display Cardiac Panel: No Data to Display Arterial Blood Gas: No Data to Display Venous Blood Gas: No Data to Display Pancreas Panel: No Data to Display Thyroid Panel: No Data to Display Infectious Disease: No Data to Display Blood Cultures: No Data to Display Toxicology Panel: No Data to Display Imaging and Studies Imaging and Studies Study information below may be from another EMR and interpreted by another provider. Please see original notes in EMR for more complete details. Stress Test Summary: 04/22/16: Ventricular Function (Wall Motion): The calculated left ventricular ejection fraction after stress: 56%. LV global systolic function is normal. No left ventricular regional motion abnormality. Echocardiogram Summary: 03/28/14: SUMMARY: Normal biventricular size and systolic function. No significant valvular pathology. Pulmonary artery pressures within normal limits. Mild left atrial enlargement. Of note, LVEF 75% on 12/20/06 study. Technically limited study then. Anesthesia Assessment and Plan Anesthesia History Personal History: No History of Anesthesia Complications Family History: No Family History of Anesthesia Complications Exercise Tolerance Exercise Tolerance: Metabolic Equivalents>4 Pertinent Negatives Pertinent Negatives: No Symptoms of GERD Cardiac & Pulmonary Exam Cardiac Exam: Normal S1/S2 Heart Sounds Pulmonary Exam: Clear Bilateral Breath Sounds Implantable Cardiac Device Does patient have a Pacemaker or an ICD?: No Airway Exam Known Difficult Airway: No Mallampati Class: 4 Mouth Opening: Narrow (< 3cm) Thyromental Distance: Less than 3 cm Neck Range of Motion: Limited ROM Neck Circumference: Thick Teeth Condition: Normal Dentition ASA Classification ASA Score: ASA 2 Emergency Case?: No NPO Status NPO Status: NPO Clears >2 hours, Solids >8 hours Anesthesia Plan Resuscitation Status: Full Code Anesthesia Technique: General Anesthesia Airway Planned: Natural Airway Monitors Used: Standard Monitors Preoperative Comments:: Last BGL from [facility] 160
--- NOTE | 2023-10-18 07:01 | W.PM.HP.N ---
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 She has done well with these injections in the past. History of Present Illness History of Present Illness Chief Complaint: Overactive bladder Narrative: Sherice is a 72-year-old female who has a history of urgency incontinence. She has failed medical management but did show improvement with intravesical injections of Botox. She has had Botox injection to the bladder done in 2018, 2020 and October 2022. Presents for repeat injection. She is not having any dysuria, gross hematuria or episodes of retention. Review of Systems Narrative: No fevers or chills No vision change or dysphasia Diabetes. No thyroid dysfunction No shortness of breath, cough or hemoptysis No chest pain or palpitations GERD. No hepatitis, ulcers or jaundice No seizures, strokes or peripheral neuropathy No bleeding disorders or anemia Myalgia/?rhabdomyolysis from Vancomycin. No gout PFSH All Active Problems (Updated 10/15/23 @ 11:04 by Darin Lowery) Urgency incontinence (Acute 05/26/16) Overactive bladder (Acute) Medical History (Updated 10/15/23 @ 11:04 by Darin Lowery) Esophageal stricture Last endoscopy for stretching 10/14/23 Diabetes mellitus Hypertension High cholesterol History of esophageal stricture Surgical History (Updated 10/18/23 @ 06:33 by Millie Blake) History of esophagogastroduodenoscopy (EGD) 10/14/23 [facility] History of toe surgery Tubal Ligation, Colonoscopy - MAC (02/05/17) Cholecystectomy Family History Maternal Aunt Colon cancer Social History Smoking/Tobacco Use Status: Never Smoking risk assessment performed?: Yes Alcohol Intake: former Drug use: Never Substance use type: does not use Housing: house Do you feel safe at home: Yes Additional Social history: unable to assess privately Meds Allergies and Home Medications Allergies Allergy/AdvReac Type Severity Reaction Status Date / Time vancomycin Allergy Severe Other (See Verified 10/18/23 07:10 Comment) sulfamethoxazole Allergy Intermediate Hives Unverified 10/18/23 06:32 [From Bactrim] trimethoprim [From Bactrim] Allergy Intermediate Hives Unverified 10/18/23 06:32 metformin AdvReac Intermediate Diarrhea Unverified 10/18/23 06:32 amoxicillin AdvReac Diarrhea Unverified 10/18/23 06:32 lisinopril AdvReac cough Unverified 10/18/23 06:32 Home Medications Medication Instructions Recorded Confirmed Type Vitamin D3 1,000 unit PO DAILY 04/22/16 10/18/23 History aspirin 81 mg chewable tablet 81 mg PO DAILY 04/22/16 10/15/23 History (Aspirin Low-Strength) esomeprazole magnesium 40 mg 40 mg PO BID 04/22/16 10/18/23 History capsule,delayed release (Nexium) losartan 25 mg tablet (Cozaar) 50 mg PO DAILY 04/22/16 10/18/23 History rosuvastatin 20 mg tablet (Crestor) 20 mg PO DAILY 04/22/16 10/18/23 History insulin glargine 100 unit/mL 46 unit subcut HS 12/27/18 10/18/23 History subcutaneous solution (Lantus U-100 Insulin) empagliflozin 25 mg tablet 25 mg PO DAILY 04/15/21 10/15/23 History (Jardiance) insulin lispro 100 unit/mL 10 - 20 unit subcut DIRECTED 04/15/21 10/18/23 History subcutaneous half-unit pen (Humalog Garrett KwikPen (U-100)) spironolactone 25 mg tablet 25 mg PO DAILY 05/02/21 10/18/23 History paroxetine HCl 10 mg tablet 10 mg PO DAILY 04/13/23 10/18/23 History semaglutide 0.25 mg or 0.5 mg (2 0.25 mg subcut QWEEK 04/13/23 10/15/23 History mg/3 mL) subcutaneous pen injector (Ozempic) Exam Const General: cooperative Neck Neck: supple Resp Effort & Inspection: normal respiratory effort Auscultation: clear to auscultation bilaterally Cardio Rate: regular rate Rhythm: regular rhythm GI Palpation: soft Neuro General: patient alert, patient awake and patient oriented x3 Results Last Vital Signs Temp 36.6 C 10/18/23 06:34 Pulse 64 10/18/23 06:34 Resp 16 10/18/23 06:34 BP 140/65 10/18/23 06:34 Pulse Ox 96 10/18/23 06:34 Time Spent Time spent with Patient: <40 minutes Time was spent: other
[2023-10-18 07:04] VITALS: BMI 33.0
[2023-10-18] MEDS: Lidocaine 2% Jelly 11 ML SYR (07:46)
--- NOTE | 2023-10-18 07:54 | PDOC.DSDIS_ITS ---
Date of service: 10/18/23 Time of Service: 07:54 Discharge Plan Disposition Patient Disposition: Home Condition: Stable Discharge Details Attending Provider: Nahum Colon Primary Care Provider: Cintia Vázquez Home Meds and New Rx's Prescriptions: No Action Ozempic 0.25 mg or 0.5 mg (2 mg/3 mL) pen injector 0.25 mg subcut QWEEK Rx Instructions: for 4 weeks paroxetine HCl 10 mg tablet 10 mg PO DAILY Jardiance 25 mg tablet 25 mg PO DAILY insulin lispro [Humalog Garrett KwikPen U-100] 100 unit/mL insulin pen, half- unit 10 - 20 unit subcut DIRECTED esomeprazole magnesium [Nexium] 40 MG capsule,delayed release(DR/EC) 40 mg PO BID losartan [Cozaar] 25 MG tablet 50 mg PO DAILY aspirin [Aspirin Low-Strength] 81 MG tablet,chewable 81 mg PO DAILY rosuvastatin [Crestor] 20 MG tablet 20 mg PO DAILY VITAMIN D3 1,000 UNIT capsule 1,000 unit PO DAILY insulin glargine [Lantus U-100 Insulin] 100 unit/mL Solution 46 unit SUBCUT HS spironolactone 25 mg Tablet 25 mg PO DAILY Discharge Instructions Additional Instructions: call 1 week with progress report followup visit 6 months Activity:: Activity as Tolerated Shower/Bathe:: 24 hours Diet:: As Tolerated Discharge Orders Discharge Orders: Discharge Order (Routine); Ordered 10/18/23 Ordered By: Nahum Colon DS: Diagnosis Discharge Diagnosis (1) Overactive bladder: Status: Acute (2) Urgency incontinence: Status: Acute
[2023-10-18 08:00] VITALS: BP 106/89; PULSE 58; RESP 18; TEMP 37; O2SAT 94
--- NOTE | 2023-10-18 08:12 | W.ANESPOSTOP ---
Postoperative Evaluation Date, Time and Location Date Performed: 10/18/23 Time Performed: 08:13 Patient Location: Day Surgery Unit Vital Signs Most Recent Imported Vital Signs: Most Recent Vital Signs Temp Pulse Resp BP Pulse Ox 37 C 58 L 18 106/89 94 10/18/23 08:00 10/18/23 08:00 10/18/23 08:00 10/18/23 08:00 10/18/23 08:00 Pain Score Most Recent Pain Score: Most Recent Pain Score Pain Level 0 10/18/23 08:00 Assessment Mental Status: Awake (Alert & Oriented to Patient Baseline) Airway and Respiratory Function: Patent airway with normal (patient baseline) respiratory exam Cardiovascular Function: Hemodynamically Stable Hydration Status: Adequately Hydrated Nausea & Vomiting: No Nausea or Vomiting Pain: Pt. Denies Any Pain Peripheral Nerve Block: Patient did not receive a nerve block
[2023-10-18] MEDS: Phenazopyridine 200 MG TAB PO (08:20)
--- NOTE | 2023-10-18 08:27 | W.PM.OP ---
Date of service: 10/18/23 Time of Service: 08:27 Operative Note Operative Note DATE OF PROCEDURE: 10/18/23 PRE-OP DIAGNOSIS: Overactive bladder POST-OP DIAGNOSIS: same PROCEDURE: cystoscopy with transurethral injection of Botox into the detrusor SURGEON: Nahum Colon ANESTHESIA TYPE: Local By Surgeon and General:No Airway Refer to Anesthesia Record ESTIMATED BLOOD LOSS: 0 PATHOLOGY: none sent COMPLICATIONS: None Patient was transported to: same day Patient's condition: stable Implants: 100 units of Botox Indications: This is a 72-year-old woman who has a history of urgency incontinence due to an overactive bladder. She has failed behavioral modification and oral medications. She has had benefit from injections of Botox into the detrusor muscle. Her most recent injection was almost a year ago. She presents for repeat injection Procedure Description: The patient was given oral antibiotics and brought to the operating room on 10/18/2023. After successful duction of general anesthesia without intubation, she was placed in the dorsal lithotomy position. Her genitalia was prepped with Betadine. 2% Xylocaine jelly was instilled into the urethra to act as a local anesthetic. A 20 [place] urethrotome sheath was passed through the urethra into the bladder. Using a transurethral injection system, we injected a total of 100 units of Botox into the detrusor muscle. We diluted the Botox and 20 mL of saline and injected 1 mL in 20 different locations. We chose a grid system with 5 vertical rows and 4 horizontal rows. We avoided the trigone and the bladder neck. At the completion of the procedure, the bladder was emptied. The patient tolerated this procedure well and was taken back to the day surgery unit in stable condition.
[2023-10-18 08:41] VITALS: BP 125/52; PULSE 47; RESP 17; TEMP 37; O2SAT 95
== END 2023-10-18 09:10 | disposition home or self-care (01) ==
PROVIDERS: PCP Family Medicine; Visit Provider Urology
PROC: (CPT 52287; principal; 2023-10-18 07:30)
DX: N32.81 Overactive bladder (principal); N39.41 Urge incontinence
CPT/HCPCS: 52287; J0585; J1885; J2001; J2250; J2405

== ENCOUNTER 2023-11-17 04:18 | Outpatient (CLI) | payer MEDICARE, BC, SELFPAY ==
[2023-11-17 12:46] LABS: Anion Gap 9.7 mmol/L (3-11); BUN 15 mg/dL (7-18); CO2 25.3 mmol/L (21.0-32.0); Calcium 9.5 mg/dL (8.5-10.1); Chloride 104 mmol/L (98-107); Estimated GFR 59.86 (mL/min/1.73m2); Glucose 183 mg/dL (74-106); Sodium 139 mmol/L (136-145)
[2023-11-17 12:53] LABS: Hemoglobin A1C 7.4 % (<5.7)
[2023-11-18 16:56] LABS: Fructosamine 256 mcmol/L (200 - 285)
== END 2023-11-17 04:19 | disposition home or self-care (01) ==
LOC: LOS 04:19
PROVIDERS: PCP Family Medicine; Visit Provider Internal Medicine Endocrinology, Diabetes & Metabolism
DX: E11.65 Type 2 diabetes mellitus with hyperglycemia (principal)
CPT/HCPCS: 36415; 80048; 82985; 83036

== ENCOUNTER 2024-02-21 18:40 | Outpatient (REF) | payer MEDICARE, BC, SELFPAY ==
[2024-02-21 20:08] LABS: HCT 40.9 % (36.0-46.0); HGB 14.3 g/dL (11.2-15.7); MCH 31.1 pg (27.0-33.0); MCV 89 fL (80-95); MPV 13.1 fL (8.0-11.0); RDW 12.9 % (11.7-14.6); RDW-SD 42.5 fL; WBC 6.32 10^3/uL (4.4-10.8)
[2024-02-21 20:26] LABS: ALT 75 U/L (14-59); AST 58 U/L (15-37); Albumin 3.7 g/dL (3.4-5.0); Alkaline Phosphatase 154 U/L (46-116); Anion Gap 10.4 mmol/L (3-11); BUN 17 mg/dL (7-18); Bilirubin, Total 0.7 mg/dL (0.2-1.0); CO2 26.6 mmol/L (21.0-32.0); CREATININE 0.9 mg/dL (0.55-1.02); Calcium 9.4 mg/dL (8.5-10.1); Chloride 106 mmol/L (98-107); Glucose 151 mg/dL (74-106); Potassium 4.8 mmol/L (3.5-5.1); Sodium 143 mmol/L (136-145); Total Protein 7.5 g/dL (6.4-8.2)
[2024-02-21 20:27] LABS: Platelet Count 155 10^3/uL (130-400)
[2024-02-21 20:57] LABS: Hemoglobin A1C 7.8 % (<5.7)
[2024-02-23 18:49] LABS: Fructosamine 287 mcmol/L (200 - 285)
== END 2024-02-21 18:41 | disposition home or self-care (01) ==
LOC: NCHCN 18:40
PROVIDERS: PCP Family Medicine; Visit Provider Family Medicine
DX: E11.9 Type 2 diabetes mellitus without complications (principal); I10 Essential (primary) hypertension
CPT/HCPCS: 80053; 85027; 82985; 83036

== ENCOUNTER → 2024-03-07 03:52 | Outpatient (CLI) | payer MEDICARE, BC, SELFPAY ==
--- NOTE | 2024-03-07 | DI.MAMMO_ITS ---
Exam(s) MAMMO SCREENING EXAM: MAMMO SCREENING CLINICAL HISTORY: SCREENING MAMMO FOR BREAST CANCER Z12.31 TECHNIQUE: Bilateral full field digital CC and MLO mammographic images were obtained with 3D tomosyn thesis and utilizing computer aided detection (CAD). COMPARISON: Available for comparison. FINDINGS: Right breast: Masses/Architectural Distortion: Nodularity noted in the upper outer quadrant measuring roughly 12 x 14 millimeters. Microcalcifications: No suspicious pleomorphic-type are seen. Skin Thickening/Nipple Retraction: None. Left breast: Masses/Architectural Distortion: Area nodularity noted in the upper outer quadrant, roughly 6 x 10 m illimeters. Microcalcifications: No suspicious pleomorphic-type are seen. Skin Thickening/Nipple Retraction: None. IMPRESSION: 1. Bilateral areas of nodularity which are new or increased from prior exams. Spine compression view s and ultrasound requested for further evaluation. BI-RADS Category 0 - Assessment Incomplete: Need additional imaging evaluation Breast Density - Category B - Scattered areas of fibroglandular density Breast density category C or D implies that the patient has dense breast tissue. Dense breast tissue is very common and is not abnormal but dense breast tissue can make it harder to find cancer on a ma mmogram. Also, dense breast tissue may increase their breast cancer risk. This information about the result of the mammogram report was provided to the patient to raise their awareness. Use this report when you speak with the patient about their risks for breast cancer, which includes their family hist ory. At that time, you may recommend for more screening tests (Ultrasound or MRI) as they might be us eful based on their risk. A negative radiographic report should not delay biopsy if a dominant or clinically suspicious mass is present. Up to ten percent of cancers are not identified on mammography. A negative report may reinforce clinical impression. Adenosis and dense breasts may obscure an underlying neoplasm. False positive reports average 6 to 10%. Patient will receive a letter notifying them of these results.
== END ==
PROVIDERS: PCP Family Medicine; Visit Provider Family Medicine
DX: Z12.31 Encounter for screening mammogram for malignant neoplasm of breast (principal); R92.8 Other abnormal and inconclusive findings on diagnostic imaging of breast
CPT/HCPCS: 77063; 77067

== ENCOUNTER → 2024-03-09 03:01 | Outpatient (CLI) | payer MEDICARE, BC, SELFPAY ==
--- NOTE | 2024-03-09 | DI.US_ITS ---
Exam(s) US BREAST RT LIMITED US BREAST LT LIMITED MG MAMMO SCREEN CALL BACK BI EXAM: MG MAMMO SCREEN CALL BACK BI CLINICAL HISTORY: F/U MAMMO, R92.8,BILAT AREAS OF NODULARITY,. TECHNIQUE: Spot compression digital Mammography views of the bothbreasts with Tomosynthesis followe d by bilateral breast ultrasound. COMPARISON: MG MG MAMMO SCREENING from 03/07/2024 US US BREAST RT LIMITED from 03/09/2024 US US BREAST LT LIMITED from 03/09/2024 FINDINGS: RIGHT BREAST: Mammography/Tomosynthesis: Masses/Architectural Distortion: Persistent nodule in the upper outer quadrant. Microcalcifictions: No suspicious pleomorphic-type are seen. Skin Thickening/Nipple Retraction: None. Right breast US: Echotexture: Normal appearance of the glandular tissue. Shadowing: No suspicious foci. Cyst: 6 mid millimeter cyst 10 o'clock position 9 cm from the nipple. 4 millimeter cyst 11 o'clock position 3 cm from the nipple. Solid lesions: 9 x 9 by 14 millimeter solid hypoechoic lesion with lobulated borders in the 11 o'cloc k position, 4 cm from the nipple. Neutral through transmission. Ductal dilation: Mildly dilated duct upper outer quadrant. LEFT BREAST: Mammography/Tomosynthesis: Masses/Architectural Distortion: Decreased prominence of nodules. Microcalcifictions: No suspicious pleomorphic-type are seen. Skin Thickening/Nipple Retraction: None. Left breast ultrasound: Echotexture: Normal appearance of the glandular tissue. Shadowing: No suspicious foci. Cyst: 5 x 6 millimeters cyst 2 o'clock position 1 cm from the nipple. Additional smaller cysts in th e upper outer quadrant. Solid lesions: None seen. Ductal dilation: None. IMPRESSION: 1. Right breast: 12 millimeter hypoechoic mass in the upper outer quadrant. Biopsy recommended. 2. Left breast: No evidence of malignancy is noted. 3. The findings were discussed with the patient on the date of the examination. 4. Findings called to EDISON Jeffries at [facility] BI-RADS Category 4 - Suspicious Abnormality: Biopsy should be considered Breast Density - Category B - Scattered areas of fibroglandular density A mammogram that demonstrates density of C or D indicates the patient's breast tissue is dense. Dense breast tissue is very common and is not abnormal, but dense breast tissue can make it harder to find cancer on a mammogram. Also, dense breast tissue may increase their breast cancer risk. This informa tion about the result of the mammogram report was provided to the patient to raise their awareness. U se this report when you speak with the patient about their risks for breast cancer, which includes th eir family history. At that time, you may recommend for more screening tests (Ultrasound or MRI) as t hey might be useful based on their risk. A negative radiographic report should not delay biopsy if a dominant or clinically suspicious mass is present. Up to ten percent of cancers are not identified on mammography. A negative report may reinforce clinical impression. Adenosis and dense breasts may obscure an underlying neoplasm. False positive reports average 6 to 10%. Patient will receive a letter notifying them of these results.
== END ==
PROVIDERS: PCP Family Medicine; Visit Provider Family Medicine
DX: R92.8 Other abnormal and inconclusive findings on diagnostic imaging of breast (principal); Z12.31 Encounter for screening mammogram for malignant neoplasm of breast
CPT/HCPCS: 76642; 77063; 77067

== ENCOUNTER → 2024-03-21 07:40 | Outpatient (BNVA) | payer MEDICARE, BC, SELFPAY | PROVIDERS: PCP Family Medicine; Referring Provider Family Medicine; Visit Provider Urology | DX: N32.81 Overactive bladder (principal) | CPT/HCPCS: 99214 ==

== ENCOUNTER 2024-11-07 01:57 | Outpatient (RCR) | payer MEDICARE, BC, SELFPAY ==
[2024-11-02] MEDS: Normal Saline Flush 10 ML SYR IVP (13:20)
[2024-11-03] MEDS: Normal Saline Flush 10 ML SYR IVP (13:47)
[2024-11-04] MEDS: Normal Saline Flush 10 ML SYR IVP ×2 (12:42→13:14)
[2024-11-05] MEDS: Normal Saline Flush 10 ML SYR IVP (12:33)
[2024-11-06] MEDS: Normal Saline Flush 10 ML SYR IVP (12:48)
[2024-11-07] MEDS: Normal Saline Flush 10 ML SYR IVP (12:55)
[2024-11-07 13:15] LABS: Abs Immature Grans 0.02 10^3/uL (0.0-0.06); Absolute Basophil Count 0.03 10^3/uL (0.0-0.2); Absolute Eosinophil Count 0.09 10^3/uL (0.0-0.7); Absolute Lymphocyte Count 0.96 10^3/uL (1.2-3.4); Absolute Monocyte Count 0.68 10^3/uL (0.1-0.8); Absolute Neutrophil Count 3.56 10^3/uL (1.2-6.7); Basophils % 0.6 %; Eosinophils % 1.7 %; HCT 26.8 % (36.0-46.0); HGB 8.6 g/dL (11.2-15.7); Immature Grans % 0.4 %; MCH 28.8 pg (27.0-33.0); MCHC 32.1 % (32.0-36.0); MCV 90 fL (80-95); MPV 12.2 fL (8.0-11.0); Monocytes % 12.7 %; Neutrophils % 66.6 %; Platelet Count 167 10^3/uL (130-400); RBC 2.99 10^6/uL (3.93-5.22); RDW 15.8 % (11.7-14.6); RDW-SD 51.2 fL; WBC 5.34 10^3/uL (4.4-10.8)
[2024-11-07 13:32] LABS: ALT 40 U/L (14-59); AST 40 U/L (15-37); Albumin 2.4 g/dL (3.4-5.0); Alkaline Phosphatase 244 U/L (46-116); BUN 11 mg/dL (7-18); Bilirubin, Total 0.41 mg/dL (0.2-1.0); C-Reactive Protein 6.98 mg/dL (<or=0.5); CREATININE 0.9 mg/dL (0.55-1.02); Calcium 9.1 mg/dL (8.5-10.1); Chloride 105 mmol/L (98-107); Creatine Kinase 274 U/L (26-192); Glucose 286 mg/dL (74-106); Potassium 3.2 mmol/L (3.5-5.1); Sodium 140 mmol/L (136-145); Total Protein 7.1 g/dL (6.4-8.2)
== END 2024-11-07 23:59 | disposition home or self-care (01) ==
LOC: INF 01:57
PROVIDERS: PCP Family Medicine; Visit Provider Family Medicine
DX: L03.317 Cellulitis of buttock (principal)
CPT/HCPCS: 36591; 80053; 82550; 96365; 96523; 85025; 86140; J0878

== ENCOUNTER 2024-12-04 02:15 | Outpatient (RCR) | payer MEDICARE, BC, SELFPAY ==
[2024-11-08 12:23] VITALS: BP 123/50; PULSE 72; RESP 16; TEMP 36.6; O2SAT 96
[2024-11-08] MEDS: Normal Saline Flush 10 ML SYR IVP (12:30)
[2024-11-09] MEDS: Normal Saline Flush 10 ML SYR IVP (10:53)
[2024-11-10] MEDS: Normal Saline Flush 10 ML SYR IVP (13:35)
[2024-11-13] MEDS: Normal Saline Flush 10 ML SYR IVP (13:00)
[2024-11-14] MEDS: Normal Saline Flush 10 ML SYR IVP ×2 (12:40→13:00)
[2024-11-14 13:13] LABS: Abs Immature Grans 0.01 10^3/uL (0.0-0.06); Absolute Basophil Count 0.03 10^3/uL (0.0-0.2); Absolute Eosinophil Count 0.18 10^3/uL (0.0-0.7); Absolute Lymphocyte Count 0.97 10^3/uL (1.2-3.4); Absolute Monocyte Count 0.53 10^3/uL (0.1-0.8); Basophils % 0.7 %; HCT 27.5 % (36.0-46.0); HGB 8.6 g/dL (11.2-15.7); Immature Grans % 0.2 %; Lymphocytes % 21.5 %; MCH 28.3 pg (27.0-33.0); MCHC 31.3 % (32.0-36.0); MCV 91 fL (80-95); MPV 11.9 fL (8.0-11.0); Monocytes % 11.7 %; Neutrophils % 61.9 %; Platelet Count 181 10^3/uL (130-400); RBC 3.04 10^6/uL (3.93-5.22); RDW 16.1 % (11.7-14.6); RDW-SD 52.8 fL; WBC 4.52 10^3/uL (4.4-10.8)
[2024-11-14 13:37] LABS: ALT 55 U/L (14-59); AST 65 U/L (15-37); Albumin 2.4 g/dL (3.4-5.0); Alkaline Phosphatase 220 U/L (46-116); Anion Gap 4.9 mmol/L (3-11); BUN 13 mg/dL (7-18); Bilirubin, Total 0.51 mg/dL (0.2-1.0); C-Reactive Protein 3.06 mg/dL (<or=0.5); CO2 30.1 mmol/L (21.0-32.0); CREATININE 1.1 mg/dL (0.55-1.02); Calcium 8.3 mg/dL (8.5-10.1); Chloride 106 mmol/L (98-107); Creatine Kinase 617 U/L (26-192); Estimated GFR 53.06 (mL/min/1.73m2); Glucose 311 mg/dL (74-106); Potassium 3.2 mmol/L (3.5-5.1); Sodium 141 mmol/L (136-145)
[2024-11-15] MEDS: Normal Saline Flush 10 ML SYR IVP (12:47)
[2024-11-16] MEDS: Normal Saline Flush 10 ML SYR IVP (12:25)
[2024-11-21 12:36] LABS: Abs Immature Grans 0.01 10^3/uL (0.0-0.06); Absolute Basophil Count 0.02 10^3/uL (0.0-0.2); Absolute Eosinophil Count 0.11 10^3/uL (0.0-0.7); Absolute Lymphocyte Count 1.08 10^3/uL (1.2-3.4); Absolute Monocyte Count 0.42 10^3/uL (0.1-0.8); Basophils % 0.4 %; Eosinophils % 2.2 %; HCT 30.1 % (36.0-46.0); HGB 9.5 g/dL (11.2-15.7); Immature Grans % 0.2 %; Lymphocytes % 21.9 %; MCH 28.9 pg (27.0-33.0); MCHC 31.6 % (32.0-36.0); MCV 92 fL (80-95); MPV 11.2 fL (8.0-11.0); Monocytes % 8.5 %; Neutrophils % 66.8 %; Platelet Count 166 10^3/uL (130-400); RBC 3.29 10^6/uL (3.93-5.22); RDW 16.6 % (11.7-14.6); RDW-SD 53.7 fL; WBC 4.94 10^3/uL (4.4-10.8)
[2024-11-21 13:00] LABS: ALT 30 U/L (14-59); AST 30 U/L (15-37); Albumin 2.6 g/dL (3.4-5.0); Alkaline Phosphatase 156 U/L (46-116); Anion Gap 7.5 mmol/L (3-11); BUN 15 mg/dL (7-18); Bilirubin, Total 0.55 mg/dL (0.2-1.0); CO2 28.5 mmol/L (21.0-32.0); CREATININE 0.9 mg/dL (0.55-1.02); Calcium 8.4 mg/dL (8.5-10.1); Chloride 103 mmol/L (98-107); Creatine Kinase 37 U/L (26-192); Glucose 287 mg/dL (74-106); Potassium 3.7 mmol/L (3.5-5.1); Sodium 139 mmol/L (136-145); Total Protein 6.9 g/dL (6.4-8.2)
[2024-11-21] MEDS: Normal Saline Flush 10 ML SYR IVP (13:07)
[2024-11-27] MEDS: Normal Saline Flush 10 ML SYR IVP (09:15)
[2024-11-27 09:25] LABS: Abs Immature Grans 0.01 10^3/uL (0.0-0.06); Absolute Basophil Count 0.03 10^3/uL (0.0-0.2); Absolute Eosinophil Count 0.09 10^3/uL (0.0-0.7); Absolute Lymphocyte Count 0.85 10^3/uL (1.2-3.4); Absolute Neutrophil Count 1.63 10^3/uL (1.2-6.7); Eosinophils % 3.1 %; HCT 29.3 % (36.0-46.0); HGB 9.4 g/dL (11.2-15.7); Immature Grans % 0.3 %; Lymphocytes % 29.2 %; MCH 28.6 pg (27.0-33.0); MCHC 32.1 % (32.0-36.0); MCV 89 fL (80-95); MPV 11.6 fL (8.0-11.0); Monocytes % 10.3 %; Neutrophils % 56.1 %; Platelet Count 101 10^3/uL (130-400); RBC 3.29 10^6/uL (3.93-5.22); RDW 15.9 % (11.7-14.6); RDW-SD 51.9 fL; WBC 2.91 10^3/uL (4.4-10.8)
[2024-11-27 09:42] LABS: ALT 29 U/L (14-59); AST 29 U/L (15-37); Alkaline Phosphatase 162 U/L (46-116); Anion Gap 8.3 mmol/L (3-11); BUN 16 mg/dL (7-18); Bilirubin, Total 0.74 mg/dL (0.2-1.0); C-Reactive Protein 0.85 mg/dL (<or=0.5); CO2 29.7 mmol/L (21.0-32.0); CREATININE 0.9 mg/dL (0.55-1.02); Calcium 9.2 mg/dL (8.5-10.1); Chloride 103 mmol/L (98-107); Creatine Kinase 28 U/L (26-192); Glucose 197 mg/dL (74-106); Potassium 3.8 mmol/L (3.5-5.1); Sodium 141 mmol/L (136-145); Total Protein 7.6 g/dL (6.4-8.2)
[2024-12-04] MEDS: Normal Saline Flush 10 ML SYR IVP (09:03)
[2024-12-04 09:44] LABS: Absolute Basophil Count 0.02 10^3/uL (0.0-0.2); Absolute Eosinophil Count 0.05 10^3/uL (0.0-0.7); Absolute Lymphocyte Count 0.91 10^3/uL (1.2-3.4); Absolute Monocyte Count 0.28 10^3/uL (0.1-0.8); Absolute Neutrophil Count 1.37 10^3/uL (1.2-6.7); Basophils % 0.8 %; Eosinophils % 1.9 %; HCT 23.7 % (36.0-46.0); HGB 7.6 g/dL (11.2-15.7); Lymphocytes % 34.6 %; MCH 28.5 pg (27.0-33.0); MCHC 32.1 % (32.0-36.0); MCV 89 fL (80-95); MPV 11.2 fL (8.0-11.0); Monocytes % 10.6 %; Neutrophils % 52.1 %; RBC 2.67 10^6/uL (3.93-5.22); RDW 15.4 % (11.7-14.6); RDW-SD 50.3 fL; WBC 2.63 10^3/uL (4.4-10.8)
[2024-12-04 10:00] LABS: Platelet Count 86 10^3/uL (130-400)
[2024-12-04 10:06] LABS: ALT 26 U/L (14-59); AST 19 U/L (15-37); Albumin 2.9 g/dL (3.4-5.0); Alkaline Phosphatase 134 U/L (46-116); Anion Gap 9.1 mmol/L (3-11); BUN 14 mg/dL (7-18); Bilirubin, Total 0.34 mg/dL (0.2-1.0); C-Reactive Protein < 0.50 mg/dL (<or=0.5); CO2 27.9 mmol/L (21.0-32.0); CREATININE 0.8 mg/dL (0.55-1.02); Calcium 8.4 mg/dL (8.5-10.1); Chloride 104 mmol/L (98-107); Creatine Kinase 41 U/L (26-192); Estimated GFR 77.75 (mL/min/1.73m2); Glucose 116 mg/dL (74-106); Potassium 3.6 mmol/L (3.5-5.1); Sodium 141 mmol/L (136-145); Total Protein 7.2 g/dL (6.4-8.2)
== END 2024-12-08 23:59 | disposition home or self-care (01) ==
LOC: INF 02:15
PROVIDERS: Internal Medicine; PCP Family Medicine; Visit Provider Family Medicine
DX: L03.317 Cellulitis of buttock (principal)
CPT/HCPCS: 36591; 80053; 82550; 96365; 96523; 85025; 86140; J0878

== ENCOUNTER → 2025-05-07 13:46 | Outpatient (BNVA) | payer MEDICARE, BC, SELFPAY | PROVIDERS: PCP Family Medicine; Referring Provider Family Medicine; Visit Provider Nurse Practitioner Gerontology | DX: N39.41 Urge incontinence (principal); N32.81 Overactive bladder; R39.9 Unspecified symptoms and signs involving the genitourinary system | CPT/HCPCS: 99213; 51798; 99215 ==

== ENCOUNTER 2025-10-08 07:11 | Day surgery (SDC) | payer MEDICARE, BC, SELFPAY ==
[2025-10-08 07:21] VITALS: BP 128/54; PULSE 59; RESP 16; TEMP 36.3; O2SAT 98
[2025-10-08] MEDS: MacroBID 100 MG CAP PO (07:31)
[2025-10-08] MEDS: Lactated Ringers 1,000 ML 80 ML IV (07:43)
--- NOTE | 2025-10-08 07:45 | ANES.PREOP_ITS ---
General Info Date of Service Date Performed: 10/08/25 Height: 5 ft 3 in Weight: 83.5 kg Body Mass Index (BMI): 32.5 Surgical Procedure: Operation Date: 10/08/25 08:55 Proposed Procedure Side Surgeon p Cystoscopy/Injection of Botox Nahum Colon MD Meds Allergies and Home Medications Allergies Allergy/AdvReac Type Severity Reaction Status Date / Time vancomycin Allergy Severe Other (See Verified 10/08/25 07:24 Comment) sulfamethoxazole (From Allergy Intermediate Hives Unverified 10/08/25 07:24 Bactrim) trimethoprim (From Bactrim) Allergy Intermediate Hives Unverified 10/08/25 07:24 metformin AdvReac Intermediate Diarrhea Unverified 10/08/25 07:24 amoxicillin AdvReac Diarrhea Unverified 10/08/25 07:24 lisinopril AdvReac cough Unverified 10/08/25 07:24 Home Medication ?Medication ?Instructions ?Recorded Vitamin D3 1,000 unit PO DAILY 04/22/16 aspirin 81 mg chewable tablet 81 mg PO DAILY 04/22/16 (Aspirin Low-Strength) esomeprazole magnesium 40 mg 40 mg PO DAILY 04/22/16 capsule,delayed release (Nexium) rosuvastatin 20 mg tablet (Crestor) 20 mg PO DAILY insulin glargine 100 unit/mL 46 unit subcut HS 9 subcutaneous solution (Lantus U-100 Insulin) insulin lispro 100 unit/mL 10 - 20 unit subcut DIRE CTED 04/15/21 subcutaneous half-unit pen (Humalog Garrett Salbador (U-100)) spironolactone 25 mg tablet 25 mg PO DAILY 05/02/21 paroxetine HCl 10 mg tablet 10 mg PO DAILY 04/13/23 gabapentin 100 mg capsule 100 mg PO DAILY 05/07/25 losartan 25 mg tablet (Cozaar) 25 mg PO DAILY 05/07/25 magnesium aspart,citrate,oxide mg PO 05/07/25 tirzepatide 5 mg/0.5 mL 5 mg subcut QWEEK 05/07/25 subcutaneous pen injector (Venus) Current Visit Medications: Current Medications Generic Name Dose Route Start Last Admin Trade Name Freq PRN Reason Stop Dose Admin OnabotulinumtoxinA 100 units/ 0 units 10/08/25 06:00 Sodium Chloride 20 ml IJ 10/08/25 23:59 DIRECTED DANICA Ringer's Solution 1,000 mls @ 80 mls/hr 10/08/25 06:00 10/08/25 07:43 IV 10/08/25 23:59 80 mls/hr INFUSION DANICA Administration Nitrofurantoin Macrocrystals 100 mg 10/08/25 06:00 10/08/25 07:31 Macrobid 100 Mg Cap PO 10/08/25 23:59 100 mg PREOP DANICA Administration Sodium Chloride 0 ml 10/08/25 06:00 Normal Saline Flush 10 Ml Syr IV 10/08/25 23:59 PRN PRN Sodium Chloride 0 ml 10/08/25 06:00 Normal Saline 10 Ml Vial IJ 10/08/25 23:59 DIRECTED PRN Sterile Water 0 ml 10/08/25 06:00 Water,Injection,Sterile 10 Ml Vial IJ 10/08/25 23:59 DIRECTED PRN PFSH Active Problems Active Problems: Problem Status Onset Code Urgency incontinence Acute 05/26/16 N39.41 Overactive bladder Acute N32.81 Medical History Medical History Esophageal stricture Last endoscopy for stretching 10/14/23 Diabetes mellitus Hypertension High cholesterol History of esophageal stricture Surgical History Surgical History History of lumpectomy of right breast History of esophagogastroduodenoscopy (EGD) 10/14/23 [facility] History of toe surgery Tubal Ligation, Colonoscopy - MAC (02/05/17) Cholecystectomy Tobacco Smoking/Tobacco Use Status: Never Alcohol Alcohol Intake: former Substance Use Substance use: Never Substance use type: does not use Vital Signs and Lab Results Vital Signs Most Recent Vital Signs in EMR: Most Recent Vital Signs Temp Pulse Resp BP Pulse Ox 36.3 C L 59 L 16 128/54 L 98 10/08/25 07:21 10/08/25 07:21 10/08/25 07:21 10/08/25 07:21 10/08/25 07:21 Point of Care Results Point of Care Results: Finger Stick Blood Glucose 174 10/08/25 07:28 Imaging and Studies Imaging and Studies Study information below may be from another EMR and interpreted by another provider. Please see original notes in EMR for more complete details. Stress Test Summary: 04/22/16: Ventricular Function (Wall Motion): The calculated left ventricular ejection fraction after stress: 56%. LV global systolic function is normal. No left ventricular regional motion abnormality. Echocardiogram Summary: 03/28/14: SUMMARY: Normal biventricular size and systolic function. No significant valvular pathology. Pulmonary artery pressures within normal limits. Mild left atrial enlargement. Of note, LVEF 75% on 12/20/06 study. Technically limited study then. Anesthesia Assessment and Plan Anesthesia History Personal History: No History of Anesthesia Complications Family History: No Family History of Anesthesia Complications Exercise Tolerance Exercise Tolerance: Metabolic Equivalents>4 Cardiac & Pulmonary Exam Cardiac Exam: Normal S1/S2 Heart Sounds Pulmonary Exam: Clear Bilateral Breath Sounds Implantable Cardiac Device Does patient have a Pacemaker or an ICD?: No Airway Exam Known Difficult Airway: No Mallampati Class: 4 Mouth Opening: Narrow (< 3cm) Thyromental Distance: Less than 3 cm Neck Range of Motion: Limited ROM Neck Circumference: Thick Teeth Condition: Normal Dentition ASA Classification ASA Score: ASA 3 Emergency Case?: No NPO Status NPO Status: NPO Clears >2 hours, Solids >8 hours Anesthesia Plan Resuscitation Status: Full Code Anesthesia Technique: General Anesthesia Airway Planned: Natural Airway Monitors Used: Standard Monitors Preoperative Comments:: 74 yo for cysto. Sig PMHx: HTN (losartan), GERD (Nexium. Minimal issue since gallbladder removal), DM (lispro, glargine, tirzepatide - last dose 2 weeks ago. BS 174), breast CA (lumpectomy, nodes on right, chemo), never smoker. ECHO 2023: LVEF 65%. no sig valve issues. Previous Anes: difficult airway [place] [facility]. Unique LMA 3 works, and easy mask ventilation. Has failed iGel 3 and 4. 10/09/24 anesthesia note states grade 3 with cunningham 3, extremely friable tissues with bleeding that required suctioning. please see full intubation note on operative record - unable to find this record. - Partial mastectomy/[facility], LMA 3 unique, easy mask. - Cysto x multiple, prop, natural airway, no issues.
[2025-10-08 08:06] VITALS: BMI 32.5
--- NOTE | 2025-10-08 08:46 | W.PM.HP.N ---
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 She has failed medical management but did show improvement with intravesical injections of Botox. Her most recent Botox injection was over one year ago She presents for repeat injection. She is not having any dysuria, gross hematuria or episodes of retention. Review of Systems Narrative: Fatigue. No fevers or chills No vision change or dysphasia Diabetes. No thyroid dysfunction No shortness of breath, cough or hemoptysis No chest pain or palpitations No nausea, vomiting, hepatitis, ulcers, jaundice, diarrhea or constipation No seizures, strokes or peripheral neuropathy Breast cancer. No bleeding disorders or anemia No gout or arthralgia PFSH All Active Problems Urgency incontinence (Acute 05/26/16) Overactive bladder (Acute) Medical History Esophageal stricture Last endoscopy for stretching 10/14/23 Diabetes mellitus Hypertension High cholesterol History of esophageal stricture Surgical History History of lumpectomy of right breast History of esophagogastroduodenoscopy (EGD) 10/14/23 [facility] History of toe surgery Tubal Ligation, Colonoscopy - MAC (02/05/17) Cholecystectomy Family History Maternal Aunt Colon cancer Social History Smoking/Tobacco Use Status: Never Smoking risk assessment performed?: Yes Alcohol Intake: former Drug use: Never Substance use type: does not use Additional [facility] Med[facility] Allergies and Home Medications Allergies Allergy/AdvReac Type Severity Reaction Status Date / Time vancomycin Allergy Severe Other (See Verified 10/08/25 07:24 Comment) sulfamethoxazole (From Allergy Intermediate Hives Unverified 10/08/25 07:24 Bactrim) trimethoprim (From Bactrim) Allergy Intermediate Hives Unverified 10/08/25 07:24 metformin AdvReac Intermediate Diarrhea Unverified 10/08/25 07:24 amoxicillin AdvReac Diarrhea Unverified 10/08/25 07:24 lisinopril AdvReac cough Unverified 10/08/25 07:24 Home Medications ?Medication ?Instructions ?Recorded ?Confirmed ?Type Vitamin D3 1,000 unit PO DAILY 04/22/16 10/08/25 History aspirin 81 mg chewable tablet 81 mg PO DAILY 04/22/16 10/08/25 History (Aspirin Low-Strength) esomeprazole magnesium 40 mg 40 mg PO DAILY 04/22/16 10/08/25 History capsule,delayed release (Nexium) rosuvastatin 20 mg tablet (Crestor) 20 mg PO DAILY 04/22/16 10/08/25 History insulin glargine 100 unit/mL 46 unit subcut HS 12/27/18 10/08/25 History subcutaneous solution (Lantus U-100 Insulin) insulin lispro 100 unit/mL 10 - 20 unit subcut DIRECTED 04/15/21 10/08/25 History subcutaneous half-unit pen (Humalog Garrett KwikPen (U-100)) spironolactone 25 mg tablet 25 mg PO DAILY 05/02/21 10/08/25 History paroxetine HCl 10 mg tablet 10 mg PO DAILY 04/13/23 10/08/25 History gabapentin 100 mg capsule 100 mg PO DAILY 05/07/25 10/08/25 History losartan 25 mg tablet (Cozaar) 25 mg PO DAILY 05/07/25 10/08/25 History magnesium aspart,citrate,oxide mg PO 05/07/25 05/07/25 History tirzepatide 5 mg/0.5 mL 5 mg subcut QWEEK 05/07/25 10/02/25 History subcutaneous pen injector (Mounjaro) Exam Const General: cooperative Neck Neck: supple Resp Effort & Inspection: normal respiratory effort Auscultation: clear to auscultation bilaterally Cardio Rate: regular rate Rhythm: regular rhythm GI Inspection: normal to inspection Palpation: soft Neuro General: patient alert, patient awake and patient oriented x3 Results Last Vital Signs Temp 36.3 C L 10/08/25 07:21 Pulse 59 L 10/08/25 07:21 Resp 16 10/08/25 07:21 BP 128/54 L 10/08/25 07:21 Pulse Ox 98 10/08/25 07:21 VTE Prohylaxis Risk Level: Low Risk Contraindications: None Prophylaxis: Mechanical Time Spent Time spent with Patient: <40 minutes Time was spent: other
[2025-10-08] MEDS: BOTULINUM TOXIN TYPE A 100 UNITS, Normal Saline 20 ML IJ (09:46)
[2025-10-08] MEDS: Lidocaine 2% Jelly 6 ML SYR (09:46)
--- NOTE | 2025-10-08 09:52 | PDOC.DSDIS_ITS ---
Date of service: 10/08/25 Discharge Plan Disposition Patient Disposition: Home Condition: Stable Discharge Details Reason For Visit: Botox injection Attending Provider: Nahum Colon Home Meds and New Rx's Prescriptions: No Action paroxetine HCl 10 mg tablet 10 mg PO DAILY insulin lispro [Humalog Garrett KwikPen U-100] 100 unit/mL insulin pen, half- unit 10 - 20 unit subcut DIRECTED losartan [Cozaar] 25 mg tablet 25 mg PO DAILY gabapentin 100 mg capsule 100 mg PO DAILY magnesium aspart,citrate,oxide 400 mg magnesium capsule PO Mounjaro 5 mg/0.5 mL pen injector 5 mg subcut QWEEK esomeprazole magnesium [Nexium] 40 MG capsule,delayed release(DR/EC) 40 mg PO DAILY aspirin [Aspirin Low-Strength] 81 MG tablet,chewable 81 mg PO DAILY rosuvastatin [Crestor] 20 MG tablet 20 mg PO DAILY VITAMIN D3 1,000 UNIT capsule 1,000 unit PO DAILY insulin glargine [Lantus U-100 Insulin] 100 unit/mL Solution 46 unit SUBCUT HS spironolactone 25 mg Tablet 25 mg PO DAILY Discharge Instructions Additional Instructions: call @ 1 week with progress report followup 1 year for repeat injection (may be as early as 6 months from now) Stand Alone Forms: Anesthesia Discharge Inst., [facility] ([facility]), Portal Information Activity:: Activity as Tolerated Shower/Bathe:: 24 hours Diet:: As Tolerated Discharge Orders Discharge Orders: Discharge Order (Routine); Ordered 10/08/25 Ordered By: Nahum Colon DS: Diagnosis Discharge Diagnosis (1) Overactive bladder: Status: Acute (2) Urgency incontinence: Status: Acute
--- NOTE | 2025-10-08 09:53 | W.PM.OP ---
Operative Note Operative Note PRE-OP DIAGNOSIS: Incontinence due to overactive bladder POST-OP DIAGNOSIS: same PROCEDURE: cystoscopy with transurethral injection of Botox into detrusor SURGEON: Nahum Colon ANESTHESIA TYPE: Local By Surgeon and General:No Airway Refer to Anesthesia Record ESTIMATED BLOOD LOSS: 5 PATHOLOGY: none sent COMPLICATIONS: None Patient was transported to: same day Patient's condition: stable Implants: 100 units Botox Indications: This is a 74-year-old woman who has a history of urinary incontinence. She tends to leak with a sensation of urgency. She has no neurologic deficits. She has failed behavioral modification and oral medical therapy. She has had benefit from Botox injections into the detrusor. She presents for repeat injection. Findings: Normal-appearing bladder Procedure Description: The patient was given antibiotics and brought to the operating room on 10/08/2025. After successful induction of general anesthesia, she was placed in the dorsal lithotomy position. Her genitalia was prepped and draped. 2% Xylocaine jelly was instilled into the urethra to act as a local anesthetic. A 20 Mongolian urethrotome sheath was passed through the urethra into the bladder. Using a transurethral injection system, we injected a total of 100 units of Botox into the detrusor muscle. We injected on the posterior bladder wall in a grid pattern with 5 vertical rows and 4 horizontal rows. We diluted the Botox in 20 mL of dilutant, so 1 mL of solution was injected at each site. At the completion of the procedure, no active bleeding was seen. The bladder was emptied and the scope was removed. The patient tolerated the procedure well with no complications. Date of Procedure: 10/08/25
[2025-10-08 09:57] VITALS: BP 114/62; PULSE 61; RESP 16; TEMP 36.3; O2SAT 94
[2025-10-08] MEDS: Phenazopyridine 200 MG TAB PO (10:07)
--- NOTE | 2025-10-08 10:27 | W.ANESPOSTOP ---
Postoperative Evaluation Date, Time and Location Date Performed: 10/08/25 Time Performed: 10:27 Patient Location: Day Surgery Unit Vital Signs Most Recent Imported Vital Signs: Most Recent Vital Signs Temp Pulse Resp BP Pulse Ox 36.3 C L 61 16 114/62 94 10/08/25 09:57 10/08/25 09:57 10/08/25 09:57 10/08/25 09:57 10/08/25 09:57 Pain Score Most Recent Pain Score: Most Recent Pain Score Pain Level 0 10/08/25 09:57 Assessment Mental Status: Awake (Alert & Oriented to Patient Baseline) Airway and Respiratory Function: Patent airway with normal (patient baseline) respiratory exam Cardiovascular Function: Hemodynamically Stable Hydration Status: Adequately Hydrated Nausea & Vomiting: No Nausea or Vomiting Pain: Pt. Denies Any Pain Peripheral Nerve Block: Patient did not receive a nerve block
[2025-10-08 10:28] VITALS: BP 113/59; PULSE 56; RESP 16; TEMP 36; O2SAT 99
== END 2025-10-08 10:42 | disposition home or self-care (01) ==
PROVIDERS: Visit Provider Urology
PROC: (CPT 52287; principal; 2025-10-08 08:45)
DX: N32.81 Overactive bladder (principal); N39.41 Urge incontinence
CPT/HCPCS: 52287; J0585; J1885; J2003; J2405; J2704